=== PATIENT | female | born 1995 | race Caucasian/White ===

== ENCOUNTER 2017-09-11 02:25 | Emergency (ER) | payer MEDICAID ==
[2017-09-11 03:36] LABS: APPEARANCE,URINE SLIGHTLY-CLOUDY; BILIRUBIN,URINE NEGATIVE (NEGATIVE); COLOR,URINE AMBER; GLUCOSE, URINE NEGATIVE (NEGATIVE); KETONES,URINE NEGATIVE (NEGATIVE); LEUKOCYTE ESTERASE,URINE NEGATIVE (NEGATIVE); NITRITE,URINE NEGATIVE (NEGATIVE); PROTEIN,URINE 30 mg/dL (NEGATIVE)
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
[2017-09-11] MEDS ORDERED: ZOLPIDEM TARTRATE 5 MG TABLET PO SCH (03:45)
[2017-09-11 03:50] LABS: URINE AMPHETAMINES SCREEN UNCONFIRMED POSITIVE; URINE BARBITURATES SCREEN NEGATIVE; URINE BENZODIAZEPINES SCREEN NEGATIVE; URINE COCAINE SCREEN NEGATIVE; URINE MARIJUANA (THC) SCREEN NEGATIVE; URINE METHADONE SCREEN NEGATIVE; URINE PHENCYCLIDINE SCREEN NEGATIVE
[2017-09-11 04:23] LABS: ABSOLUTE EOSINOPHILS # (AUTO) 0.3 10^3/uL (0.0-0.6); ABSOLUTE MONOCYTES (AUTO) 0.4 10^3/uL (0.1-1.4); ABSOLUTE NEUT (AUTO) 2.7 10^3/uL (1.7-8.2); BASOPHILS % (AUTO) 0.7 % (0-2); EOSINOPHILS % (AUTO) 4.8 % (0-6); HEMATOCRIT 41.7 % (36.0-47.0); HEMOGLOBIN 14.3 g/dL (12.0-15.5); MEAN CORPUSCULAR HEMOGLOBIN 29.6 pg (27.0-33.4); MEAN CORPUSCULAR HGB CONC 34.2 g/dL (32.0-36.0); MEAN CORPUSCULAR VOLUME 87 fl (80-97); MONOCYTES % (AUTO) 5.7 % (3-13); PLATELET COUNT 230 10^3/uL (150-450); RED BLOOD COUNT 4.82 10^6/uL (3.72-5.28); RED CELL DISTRIBUTION WIDTH 13.1 % (11.5-14.0); SEGMENTED NEUTROPHILS % (AUTO) 42.8 % (42-78); TOTAL CELLS COUNTED % (AUTO) 100 %; WHITE BLOOD COUNT 6.4 10^3/uL (4.0-10.5)
[2017-09-11 04:40] LABS: ALANINE AMINOTRANSFERASE 37 U/L (9-52); ALKALINE PHOSPHATASE 52 U/L (38-126); ANION GAP 10 (5-19); ASPARTATE AMINO TRANSFERASE 18 U/L (14-36); BILIRUBIN,DIRECT 0.2 mg/dL (0.0-0.4); BILIRUBIN,TOTAL 0.3 mg/dL (0.2-1.3); BLOOD UREA NITROGEN 14 mg/dL (7-20); CALCIUM 9.8 mg/dL (8.4-10.2); CARBON DIOXIDE 27 mmol/L (22-30); CHLORIDE 105 mmol/L (98-107); GLUCOSE 101 mg/dL (75-110); POTASSIUM 3.7 mmol/L (3.6-5.0); SODIUM 141.7 mmol/L (137-145); TOTAL PROTEIN 6.5 g/dL (6.3-8.2)
[2017-09-11 04:42] LABS: ACETAMINOPHEN < 10 ug/mL (10-30); ALCOHOL < 10 mg/dL (NONE DETECTED); SALICYLATE < 1.0 mg/dL (2.0-20.0)
--- NOTE | 2017-09-11 07:39 | EKG REPORT ---
SEVERITY:- NORMAL ECG - SINUS RHYTHM : Confirmed by: Elsa Gibson MD 11-Sep-2017 07:38:31
--- NOTE | 2017-09-11 09:52 | ER Document Report ---
Doctor's Note Notes: 09/11/17 09:51 Medical rounds: Chart reviewed and patient interviewed briefly. Vital signs are normal. Laboratory values are satisfactory. On examination, patient is alert, oriented, and cooperative. She denies any somatic complaints. She is medically stable, pending psychiatric evaluation and recommendations.
[2017-09-11] MEDS ORDERED: OXCARBAZEPINE 150 MG TABLET PO SCH (10:00)
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
[2017-09-11 16:07] VITALS: BP 114/67
== END 2017-09-11 16:08 | disposition home or self-care (01) ==
LOC: ER 02:25
DX: F31.9 Bipolar disorder, unspecified (principal); F43.10 Post-traumatic stress disorder, unspecified; R45.851 Suicidal ideations; Z88.0 Allergy status to penicillin; F17.200 Nicotine dependence, unspecified, uncomplicated; F90.9 Attention-deficit hyperactivity disorder, unspecified type
CPT/HCPCS: 36415; 80053; 80307; 81001; 84703; 85025; 93005; 93010; 99285

== ENCOUNTER 2017-09-23 13:16 | Emergency (ER) | payer MEDICAID, OTHER ==
[2017-09-23 14:16] LABS: APPEARANCE,URINE CLOUDY; BILIRUBIN,URINE NEGATIVE (NEGATIVE); COLOR,URINE AMBER; GLUCOSE, URINE NEGATIVE (NEGATIVE); KETONES,URINE NEGATIVE (NEGATIVE); LEUKOCYTE ESTERASE,URINE LARGE (NEGATIVE); NITRITE,URINE NEGATIVE (NEGATIVE); PROTEIN,URINE 100 mg/dL (NEGATIVE); URINE SPECIFIC GRAVITY 1.027
[2017-09-23] MEDS ORDERED: NITROFURANTOIN MONOHYD/M-CRYST 100 MG CAPSULE PO ONE (14:37)
[2017-09-23] MEDS ORDERED: PHENAZOPYRIDINE HCL 200 MG TABLET PO ONE (14:37)
--- NOTE | 2017-09-23 14:41 | ER Document Report ---
ED General - General Chief Complaint: Urinary Problem Stated Complaint: URINARY PROBLEMS Time Seen by Provider: 09/23/17 14:37 Mode of Arrival: Ambulatory Information source: Patient Notes: Patient presents complaining that she has severe lower abdominal pressure and bleeding when she urinates. She states her urine is very strong smelling. Symptoms are moderate to severe. They are constant. They are worse with urinating and better with rest. She has no vaginal bleeding or discharge. She has had no vomiting or diarrhea. The pain does radiate into her pelvis. It is a crampy and sharp sensation. TRAVEL OUTSIDE OF THE [place] IN LAST 30 DAYS: No - Related Data Allergies/Adverse Reactions: escitalopram oxalate [From Lexapro] Allergy (Intermediate, Verified 09/23/17 13: 20) Unknown reaction lavender (Lavandula angustifolia) [lavender] Allergy (Intermediate, Verified 03/03 13:20) Hives Raspberry Flavor, Artificial * [Raspberry Flavor, Artificial] Allergy ( Intermediate, Verified 09/23/17 13:20) Hives ceftriaxone [From Rocephin] Allergy (Verified 09/23/17 13:20) Penicillins Adverse Reaction (Unknown, Verified 09/23/17 13:20) amharic spring Allergy (Intermediate, Uncoded 09/23/17 13:20) Hives Past Medical History - General Information source: Patient - Social History Smoking Status: Never Smoker Chew tobacco use (# tins/day): No Frequency of alcohol use: None Family History: Reviewed & Not Pertinent Patient has suicidal ideation: No Patient has homicidal ideation: No Renal/ Medical History: Denies: Hx Peritoneal Dialysis Psychiatric Medical History: Reports: Hx Bipolar Disorder Past Surgical History: Reports: Hx Section - Immunizations Immunizations up to date: Yes Hx Diphtheria, Pertussis, Tetanus Vaccination: No Review of Systems - Review of Systems Constitutional: denies: Chills, Fever Cardiovascular: denies: Chest pain, Palpitations Respiratory: denies: Cough, Short of breath Gastrointestinal: Abdominal pain, Nausea -: Yes All other systems reviewed and negative Physical Exam - Vital signs Vitals: Temp Pulse Resp BP Pulse Ox 98.3 F 80 15 122/79 99 09/23/17 13:28 09/23/17 13:28 09/23/17 13:28 09/23/17 13:28 09/23/17 13:28 Interpretation: Normal - General General appearance: Appears well, Alert - HEENT Head: Normocephalic, Atraumatic Eyes: Normal Pupils: PERRL - Respiratory Respiratory status: No respiratory distress Chest status: Nontender Breath sounds: Normal Chest palpation: Normal - Cardiovascular Rhythm: Regular Heart sounds: Normal auscultation Murmur: No - Abdominal Inspection: Normal Distension: No distension Bowel sounds: Normal Tenderness: Tender, Other - Patient is tender in the bilateral lower quadrants Organomegaly: No organomegaly - Back Back: Normal, Nontender - Extremities General upper extremity: Normal inspection, Nontender, Normal color, Normal ROM , Normal temperature General lower extremity: Normal inspection, Nontender, Normal color, Normal ROM , Normal temperature, Normal weight bearing. No: Kobe's sign - Neurological Neuro grossly intact: Yes Cognition: Normal Orientation: AAOx4 Anju Coma Scale Eye Opening: Spontaneous Anju Coma Scale Verbal: Oriented Anju Coma Scale Motor: Obeys Commands Anju Coma Scale Total: 15 Speech: Normal Motor strength normal: LUE, RUE, LLE, RLE Sensory: Normal - Psychological Associated symptoms: Normal affect, Normal mood - Skin Skin Temperature: Warm Skin Moisture: Dry Skin Color: Normal Course - Vital Signs Vital signs: Temp Pulse Resp BP Pulse Ox 98.3 F 80 15 122/79 99 09/23/17 13:28 09/23/17 13:28 09/23/17 13:28 09/23/17 13:28 09/23/17 13:28 - Laboratory Laboratory results interpreted by me: 09/23/17 13:34 Urine Protein 100 H Urine Blood MODERATE H Urine Urobilinogen 4.0 H Ur Leukocyte Esterase LARGE H Discharge - Discharge Clinical Impression: UTI (urinary tract infection) Qualifiers: Urinary tract infection type: acute cystitis Hematuria presence: with hematuria Qualified Code(s): N30.01 - Acute cystitis with hematuria Condition: Stable Disposition: HOME, SELF-CARE Instructions: Urinary Tract Infection ([facility]), Nitrofurantoin ([facility]) Prescriptions: Ibuprofen [Motrin 800 mg Tablet] 800 mg PO Q8H PRN #30 tab PRN Reason: Nitrofurantoin Monohyd/M-Cryst [Macrobid 100 mg Capsule] 100 mg PO BID 7 Days # 14 capsule Phenazopyridine HCl [Pyridium 200 mg Tablet] 200 mg PO TID #15 tablet Forms: Return to Work
[2017-09-23 14:45] VITALS: BP 120/78
== END 2017-09-23 14:48 | disposition home or self-care (01) ==
LOC: ER 13:16
DX: N30.01 Acute cystitis with hematuria (principal); R10.30 Lower abdominal pain, unspecified; R11.0 Nausea; Z88.0 Allergy status to penicillin
CPT/HCPCS: 99283; 81001; J3490 ×2; J8499

== ENCOUNTER 2017-10-02 17:42 | Emergency (ER) | payer MEDICAID ==
[2017-10-02] MEDS ORDERED: OXYCODONE-ACETAMINOPHEN 5-325 MG TABLET PO ONE (18:59)
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
[2017-10-02] MEDS ORDERED: HYDROMORPHONE HCL INJ/PF 2 MG/ML AMPULE IV ONE ×2 (19:09→19:36)
[2017-10-02] MEDS ORDERED: CLINDAMYCIN 600 MG/D5W RTU 600 MG/50 ML RTUPB IV ONE (19:35)
[2017-10-02] MEDS ORDERED: DIPH/PERTUSS(ACELL)/TETANUS VAC/PF 0.5 ML SYR (>=10YO) IM ONE (19:35)
[2017-10-02] MEDS ORDERED: ONDANSETRON HCL INJ/PF 4 MG/2 ML SDV IV ONE (19:36)
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
[2017-10-02] MEDS ORDERED: LIDOCAINE 1%/EPINEPHRINE INJ 20 ML VIAL INJ ONE (20:39)
[2017-10-02] MEDS ORDERED: LORAZEPAM INJ 2 MG/1 ML VIAL IV ONE (20:39)
[2017-10-02] MEDS ORDERED: HYDROCODONE/ACETAMINOPHEN 5-325 MG (6 TAB/ER DISP) PO PRN (21:22)
[2017-10-02 21:47] VITALS: BP 125/63
== END 2017-10-02 21:46 | disposition home or self-care (01) ==
LOC: ER 17:42
PROC: 0JCH0ZZ Extirpation of Matter from Left Lower Arm Subcutaneous Tissue and Fascia, Open Approach (ICD-10-PCS; principal; 2017-10-02)
DX: S51.822A Laceration with foreign body of left forearm, initial encounter (principal); S00.83XA Contusion of other part of head, initial encounter; S80.812A Abrasion, left lower leg, initial encounter; M54.2 Cervicalgia; V86.59XA Driver of other special all-terrain or other off-road motor vehicle injured in nontraffic accident, initial encounter; F17.200 Nicotine dependence, unspecified, uncomplicated; Z88.0 Allergy status to penicillin; Z23 Encounter for immunization
CPT/HCPCS: 96376; 99284; 90471; 96375; 96365; 36415; 84703; 73090; 73130; 73030; 70450; 72125; 90715; 20103; S0077; J3490; J1170; J2060; J2405

== ENCOUNTER 2018-04-22 21:36 | Emergency (ER) | payer MEDICAID ==
[2018-04-22 22:33] LABS: ABSOLUTE EOSINOPHILS # (AUTO) 0.2 10^3/uL (0.0-0.6); ABSOLUTE LYMPHOCYTES (AUTO) 2.9 10^3/uL (0.5-4.7); ABSOLUTE MONOCYTES (AUTO) 0.3 10^3/uL (0.1-1.4); ABSOLUTE NEUT (AUTO) 5.3 10^3/uL (1.7-8.2); BASOPHILS % (AUTO) 0.4 % (0-2); EOSINOPHILS % (AUTO) 2.1 % (0-6); HEMATOCRIT 39.1 % (36.0-47.0); HEMOGLOBIN 13.7 g/dL (12.0-15.5); MEAN CORPUSCULAR HEMOGLOBIN 30.7 pg (27.0-33.4); MEAN CORPUSCULAR HGB CONC 34.9 g/dL (32.0-36.0); MEAN CORPUSCULAR VOLUME 88 fl (80-97); MONOCYTES % (AUTO) 3.7 % (3-13); PLATELET COUNT 212 10^3/uL (150-450); RED BLOOD COUNT 4.45 10^6/uL (3.72-5.28); RED CELL DISTRIBUTION WIDTH 12.6 % (11.5-14.0); SEGMENTED NEUTROPHILS % (AUTO) 60.8 % (42-78); TOTAL CELLS COUNTED % (AUTO) 100 %; WHITE BLOOD COUNT 8.7 10^3/uL (4.0-10.5)
[2018-04-22 22:48] LABS: ALANINE AMINOTRANSFERASE 37 U/L (9-52); ALBUMIN 3.7 g/dL (3.5-5.0); ALKALINE PHOSPHATASE 44 U/L (38-126); ANION GAP 7 (5-19); ASPARTATE AMINO TRANSFERASE 23 U/L (14-36); BILIRUBIN,DIRECT 0.2 mg/dL (0.0-0.4); BILIRUBIN,TOTAL 0.3 mg/dL (0.2-1.3); BLOOD UREA NITROGEN 11 mg/dL (7-20); CALCIUM 9.1 mg/dL (8.4-10.2); CARBON DIOXIDE 24 mmol/L (22-30); CHLORIDE 110 mmol/L (98-107); GLUCOSE 84 mg/dL (75-110); POTASSIUM 3.8 mmol/L (3.6-5.0); SODIUM 140.6 mmol/L (137-145); TOTAL PROTEIN 6.2 g/dL (6.3-8.2)
[2018-04-22 22:50] LABS: ACETAMINOPHEN < 10 ug/mL (10-30); ALCOHOL < 10 mg/dL (NONE DETECTED); SALICYLATE < 1.0 mg/dL (2.0-20.0)
--- NOTE | 2018-04-23 00:56 | ER Document Report ---
ED General - General Chief Complaint: Suicidal Ideation Stated Complaint: SUICIDAL IDEATION Time Seen by Provider: 04/22/18 21:55 Notes: Patient is a 22-year-old female with a past medical history of anxiety and depression, prior suicide attempts who presents with suicidal ideation and worsening depression. The patient reports that she was evicted from her home today, unfortunately lost custody of her child in that context. She states that since that time she has had a pervasive sense of wanting to end her life but denies a specific plans, means or intention to complete this section. She states the last time she felt this way was when she was 15 or 16 years old. She has been taking all medications as prescribed. She does not have local family support. She is currently homeless. She denies any acute medical concerns. TRAVEL OUTSIDE OF THE [place] IN LAST 30 DAYS: No - Related Data Allergies/Adverse Reactions: escitalopram oxalate [From Lexapro] Allergy (Intermediate, Verified 04/23/18 00: 59) Unknown reaction lavender (Lavandula angustifolia) [lavender] Allergy (Intermediate, Verified 03/03 00:59) Hives Raspberry Flavor, Artificial * [Raspberry Flavor, Artificial] Allergy ( Intermediate, Verified 04/23/18 00:59) Hives ceftriaxone [From Rocephin] Allergy (Verified 04/23/18 00:59) Penicillins Adverse Reaction (Unknown, Verified 04/23/18 00:59) [facility] Allergy (Intermediate, Uncoded 10/02/17 17:46) Hives Past Medical History - General Information source: Patient - Social History Smoking Status: Current Every Day Smoker Frequency of alcohol use: Social Drug Abuse: None Lives with: Homeless Family History: Reviewed & Not Pertinent Patient has suicidal ideation: Yes Patient has homicidal ideation: No Renal/ Medical History: Denies: Hx Peritoneal Dialysis Psychiatric Medical History: Reports: Hx Bipolar Disorder, Hx Depression Past Surgical History: Reports: Hx Section - Immunizations Immunizations up to date: Yes Hx Diphtheria, Pertussis, Tetanus Vaccination: No Review of Systems - Review of Systems Notes: Constitutional: Negative for fever. HENT: Negative for sore throat. Eyes: Negative for visual changes. Cardiovascular: Negative for chest pain. Respiratory: Negative for shortness of breath. Gastrointestinal: Negative for abdominal pain, vomiting or diarrhea. Genitourinary: Negative for dysuria. Musculoskeletal: Negative for back pain. Skin: Negative for rash. Neurological: Negative for headaches, weakness or numbness. 10 point ROS negative except as marked above and in HPI. Physical Exam - Vital signs Vitals: Temp Pulse Resp BP Pulse Ox 98.1 F 62 16 107/65 98 04/22/18 21:55 04/22/18 21:55 04/22/18 21:55 04/22/18 21:55 04/22/18 21:55 Interpretation: Normal Notes: PHYSICAL EXAMINATION: GENERAL: Well-appearing, well-nourished and in no acute distress. HEAD: Atraumatic, normocephalic. EYES: Pupils equal round and reactive to light, extraocular movements intact, sclera anicteric, conjunctiva are normal. ENT: nares patent, oropharynx clear without exudates. Moist mucous membranes. NECK: Normal range of motion, supple without lymphadenopathy LUNGS: Breath sounds clear to auscultation bilaterally and equal. No wheezes rales or rhonchi. HEART: Regular rate and rhythm without murmurs ABDOMEN: Soft, nontender, normoactive bowel sounds. No guarding, no rebound. No masses appreciated. EXTREMITIES: Normal range of motion, no pitting or edema. No cyanosis. NEUROLOGICAL: No focal neurological deficits. Moves all extremities spontaneously and on command. PSYCH: Depressed mood and affect. Poor eye contact. SKIN: Warm, Dry, normal turgor, no rashes or lesions noted. Course - Re-evaluation Re-evalutation: 04/23/18 03:13 Patient presents with complaints of passive suicidal ideation without specific plan or intention to complete after being evicted from her apartment and having to give up custody of her child to a former significant other. Patient denies any acute medical complaints. She states that she has been taking all medications as prescribed. Patient has no findings on medical screening exam and her medical screening labs are noted to be unremarkable. She has agreed to remain in the emergency department to speak with our behavioral health services in the morning. She is cleared for evaluation and disposition by psychiatry. - Vital Signs Vital signs: Temp Pulse Resp BP Pulse Ox 98.1 F 62 16 107/65 98 04/22/18 21:55 04/22/18 21:55 04/22/18 21:55 04/22/18 21:55 04/22/18 21:55 - Laboratory Result Diagrams: 04/22/18 22:15 04/22/18 22:15 Laboratory results interpreted by me: 04/22/18 22:15 Chloride 110 H Total Protein 6.2 L Salicylates < 1.0 L Acetaminophen < 10 L - EKG Interpretation by Me Additional EKG results interpreted by me: 04/23/18 03:14 Sinus rhythm. Rate 64. No ST elevations or depressions. QTC is 430. Discharge - Discharge Clinical Impression: Suicidal ideation Depression Qualifiers: Depression Type: unspecified Qualified Code(s): F32.9 - Major depressive disorder, single episode, unspecified
--- NOTE | 2018-04-23 07:33 | EKG REPORT ---
SEVERITY:- NORMAL ECG - SINUS RHYTHM : Confirmed by: Gino Lee MD 23-Apr-2018 07:32:25
--- NOTE | 2018-04-23 10:02 | ER Document Report ---
Doctor's Note Notes: 04/23/18 10:01 Rounds: Chart reviewed and patient interviewed. Patient suffers from anxiety and depression and had suicidal thoughts. Seems to still be depressed this morning. Patient is homeless. Also has lost custody of her child. No urinalysis obtained at this point so drug screen not available. All other labs are essentially normal. Vital signs are all normal. Patient appears to be medically stable for transfer or discharge. Sagrario Colón MD
[2018-04-23 10:31] LABS: AMORPHOUS SEDIMENT,URINE TRACE /HPF; APPEARANCE,URINE CLOUDY; BILIRUBIN,URINE NEGATIVE (NEGATIVE); COLOR,URINE YELLOW; GLUCOSE, URINE NEGATIVE (NEGATIVE); KETONES,URINE NEGATIVE (NEGATIVE); LEUKOCYTE ESTERASE,URINE TRACE (NEGATIVE); NITRITE,URINE NEGATIVE (NEGATIVE); PROTEIN,URINE 30 mg/dL (NEGATIVE); URINE SPECIFIC GRAVITY 1.026; UROBILINOGEN,URINE NEGATIVE mg/dL (<2.0)
[2018-04-23 10:42] LABS: URINE AMPHETAMINES SCREEN NEGATIVE; URINE BARBITURATES SCREEN NEGATIVE; URINE BENZODIAZEPINES SCREEN NEGATIVE; URINE COCAINE SCREEN NEGATIVE; URINE MARIJUANA (THC) SCREEN NEGATIVE; URINE METHADONE SCREEN NEGATIVE; URINE PHENCYCLIDINE SCREEN NEGATIVE
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
--- NOTE | 2018-04-24 09:23 | ER Document Report ---
Doctor's Note Notes: 04/24/18 09:22 22-year-old female with unspecified bipolar affective disorder presenting with suicidal ideations and depression. She is hemodynamically stable and she is waiting for inpatient psych transfer.
--- NOTE | 2018-04-24 11:38 | PSYCHOLOGICAL NOTE ---
Psych Note - Psych Note Psych Note: Reason for consult: suicidal ideation Clinician conducted check in with patient. Patient is tearful and exclaims that she is a " failure" for not having a home for her son. Patient would not deny suicidal ideation but did deny homicidal ideation. Patient is alert and oriented to person, place, time and circumstance. Mood is dysphoric. Eye contact is fair. Intellectual abilities appear to be within normal range. Conversational speech was within normal rate, tone and prosody. Attention and concentration were good. Insight, judgment, impulse control are fair. Diagnosis: 296.80 (F31.9) unspecified bipolar and related disorder per history provided by the patient 309.81 (F43.10) post manic stress disorder per history provided by patient 314.01 (F90.9) unspecified attention deficit disorder per history by the patient Impression/Plan: Patient is recommended for IVC. Patient discloses suicidal ideation with plan. Patient is dysphoric mood with tearful affect. Patient reports feelings of hopeless and helpless. Behavioral Healthcare Team is actively seeking placement for this patient. Dr. Ortiz was consulted and the care and management of this patient; attending physician is in agreement with recommendations and disposition.
[2018-04-24 12:57] VITALS: BP 104/63
== END 2018-04-24 13:15 ==
LOC: ER 21:36
DX: F31.9 Bipolar disorder, unspecified (principal); R45.851 Suicidal ideations; F17.200 Nicotine dependence, unspecified, uncomplicated; Z91.5 Personal history of self-harm; Z59.0 Homelessness; Z88.8 Allergy status to other drugs, medicaments and biological substances; Z91.048 Other nonmedicinal substance allergy status; Z88.1 Allergy status to other antibiotic agents
CPT/HCPCS: 36415; 80053; 80307; 81001; 84703; 85025; 93005; 93010; 99285

== ENCOUNTER 2019-04-09 16:03 | Outpatient (CLI) | payer MEDICAID ==
[2019-04-09 16:43] LABS: APPEARANCE,URINE CLEAR; BILIRUBIN,URINE NEGATIVE (NEGATIVE); COLOR,URINE YELLOW; GLUCOSE, URINE NEGATIVE (NEGATIVE); KETONES,URINE NEGATIVE (NEGATIVE); LEUKOCYTE ESTERASE,URINE NEGATIVE (NEGATIVE); NITRITE,URINE NEGATIVE (NEGATIVE); PROTEIN,URINE NEGATIVE (NEGATIVE); URINE SPECIFIC GRAVITY 1.009; UROBILINOGEN,URINE NEGATIVE mg/dL (<2.0)
[2019-04-09 16:58] LABS: URINE AMPHETAMINES SCREEN NEGATIVE; URINE BARBITURATES SCREEN NEGATIVE; URINE BENZODIAZEPINES SCREEN NEGATIVE; URINE COCAINE SCREEN NEGATIVE; URINE MARIJUANA (THC) SCREEN NEGATIVE; URINE METHADONE SCREEN NEGATIVE; URINE PHENCYCLIDINE SCREEN NEGATIVE
== END 2019-04-09 16:54 | disposition home or self-care (01) ==
LOC: LC 16:03
PROVIDERS: ATTEND Obstetrics & Gynecology
PROC: 4A1HXCZ Monitoring of Products of Conception, Cardiac Rate, External Approach (ICD-10-PCS; principal; 2019-04-09)
DX: O36.8120 Decreased fetal movements, second trimester, not applicable or unspecified (principal); Z3A.21 21 weeks gestation of pregnancy
CPT/HCPCS: 80307; 81001

== ENCOUNTER 2019-07-07 02:22 | Inpatient (IN) | payer MEDICAID ==
[2019-07-07] MEDS ORDERED: PENICILLIN G POTASSIUM 5,000,000 UNIT in DEXTROSE 5%-WATER 100 ML IV ONE (02:30)
[2019-07-07] MEDS ORDERED: RINGERS SOLUTION,LACTATED 1,000 ML IV PRN (02:30)
[2019-07-07 03:22] LABS: APPEARANCE,URINE CLEAR; BILIRUBIN,URINE NEGATIVE (NEGATIVE); COLOR,URINE STRAW; GLUCOSE, URINE NEGATIVE (NEGATIVE); KETONES,URINE TRACE mg/dL (NEGATIVE); LEUKOCYTE ESTERASE,URINE NEGATIVE (NEGATIVE); NITRITE,URINE NEGATIVE (NEGATIVE); PROTEIN,URINE NEGATIVE (NEGATIVE); URINE SPECIFIC GRAVITY 1.006; UROBILINOGEN,URINE NEGATIVE mg/dL (<2.0)
[2019-07-07 03:24] LABS: RBCS (WET MOUNT) FEW RBCS SEEN; T.VAGINALIS (WET MOUNT) NO TRICHOMONAS SEEN; WBCS (WET MOUNT) RARE WBCS SEEN; YEAST (WET MOUNT) NO YEAST SEEN
[2019-07-07] MEDS ORDERED: MISOPROSTOL 0.2 MG TABLET ONE (03:49)
[2019-07-07] MEDS ORDERED: OXYTOCIN 10 UNIT/ML VIAL ONE (03:49)
[2019-07-07] MEDS ORDERED: LIDOCAINE 1% INJ-PF (10 MG/ML) 30 ML SDV ONE (03:51)
[2019-07-07] MEDS ORDERED: BETAMET ACET/BETAMET NA INJ 6 MG/1 ML ONE (03:51)
[2019-07-07] MEDS ORDERED: OXYTOCIN/NORMAL SALINE 0 UNIT/0 ML RTUINJ ONE (03:52)
[2019-07-07] MEDS ORDERED: MAGNESIUM SULFATE 20 GM/500 ML RTUINJ IV ONE ×2 (03:52→15:42)
[2019-07-07] MEDS ORDERED: MAGNESIUM SULFATE 4 GM/100 ML RTUPB IV ONE ×2 (03:52→04:07)
[2019-07-07] MEDS ORDERED: PENICILLIN G-K 5 MILLION UNIT VIAL ONE ×5 (03:53→22:48)
[2019-07-07] MEDS ORDERED: MAGNESIUM SULFATE 20 GM/500 ML RTUINJ IV PRN (04:07)
[2019-07-07 04:08] LABS: ABSOLUTE EOSINOPHILS # (AUTO) 0.3 10^3/uL (0.0-0.6); ABSOLUTE LYMPHOCYTES (AUTO) 2.4 10^3/uL (0.5-4.7); ABSOLUTE MONOCYTES (AUTO) 0.6 10^3/uL (0.1-1.4); ABSOLUTE NEUT (AUTO) 8.4 10^3/uL (1.7-8.2); BASOPHILS % (AUTO) 0.3 % (0-2); EOSINOPHILS % (AUTO) 2.5 % (0-6); HEMATOCRIT 33.6 % (36.0-47.0); HEMOGLOBIN 11.7 g/dL (12.0-15.5); LYMPHOCYTES % (AUTO) 20.3 % (13-45); MEAN CORPUSCULAR HEMOGLOBIN 30.7 pg (27.0-33.4); MEAN CORPUSCULAR HGB CONC 34.8 g/dL (32.0-36.0); MEAN CORPUSCULAR VOLUME 88 fl (80-97); MONOCYTES % (AUTO) 5.3 % (3-13); PLATELET COUNT 243 10^3/uL (150-450); RED BLOOD COUNT 3.81 10^6/uL (3.72-5.28); RED CELL DISTRIBUTION WIDTH 12.7 % (11.5-14.0); SEGMENTED NEUTROPHILS % (AUTO) 71.6 % (42-78); TOTAL CELLS COUNTED % (AUTO) 100 %; WHITE BLOOD COUNT 11.8 10^3/uL (4.0-10.5)
--- NOTE | 2019-07-07 04:17 | Admission Physical ---
Datetime Report Generated by CPN: 07/07/2019 04:17 CURRENT ADMISSION Chief Complaint: Vaginal Bleeding Chief Complaint Other: Vaginal bleeding Admit Impression : , Intrauterine ; Ruptured Membranes Admit Impression- Other: Thin dilute blood in vaginal vault. Positve for amniotic fluid PPROM at 34 wks EGA Admit Plan: Admit to Unit; Initiate Labor Protocol ALLERGIES Medication Allergies: Yes Medication Allergies: escitalopram oxalate/MO/Unknown reactio (04/23/2018); ceftriaxone (04/23/2018); lavender (Lavandula angustifolia)/MO/Hives (04/23/2018); Raspberry Flavor, Artificial */MO/Hives (04/23/2018) Latex: No Latex Allergies Food Allergies: raspberries OBSTETRICAL HISTORY EDC: 08/18/2019 00:00 : 2 Para: 1 Term: 1 : 0 SAB: 0 IAB: 0 Livin Gestational Diabetes: No Rh Sensitization: No Incompetent Cervix: No GAIL: No Infertility: No ART Treatment: No Uterine Anomaly: No IUGR: No Hx Previous C/S: Yes Macrosomia: No Hx Loss/Stillborn: No PIH: No Hx : No Placenta Previa/Abruption: No Depression/PP Depression: Yes PTL/PROM: No Post Hemorrhage: No Current Procedures: Ultrasound Obstetrical History Comments: 2015 G2- current SEE RECORDS Alcohol: No Marijuana : No Cocaine: No Other Illicit Drugs: No Cigarettes: Smoker, Current Status Unknown. [id number] Cigarette Comments: Has not smoked since the beginning of April, but states she was smoking a half pack a day MEDICAL HISTORY Diabetes: No Blood Transfusion: No Pulmonary Disease (Asthma, TB): No Breast Disease: No Hypertension: No Laboratory Helper Surgery: No Heart Disease: No Hosp/Surgery: No Autoimmune Disorder: No Anesthetic Complications: No Kidney Disease: No Abnormal Pap Smear: No Neuro/Epilepsy: No Psychiatric Disorders: No Other Medical Diseases: No Hepatitis/Liver Disease: No Significant Family History: No Varicosities/Phlebitis: No Trauma/Violence : No Thyroid Dysfunction: No Medical History Comments: pt is hypoglycemic, fainting spells during this , previous section and wisdom teeth in 2019 INFECTIOUS HISTORY Gonorrhea: No Genital Herpes: No Chlamydia: No Tuberculosis: No Syphilis: No Hepatitis: No HIV/AIDS Exposure: No Rash or Viral Illness: No HPV: No PHYSICAL EXAM General: Normal HEENT: Normal Neurologic: Normal Thyroid: Normal Heart: Normal Lungs: Normal Breast: Normal Back: Normal Abdomen: Abnormal Genitourinary Exam: Normal Extremities: Normal DTRs: Normal Pelvic Type: Adequate Physical Exam Comments: Thin blood tinged fluid vaginal vault Vital Signs: Reviewed; Within Normal Limits VAGINAL EXAM Dilatation: 0 Effacement: 0 Contraction Comments: Q 10 minutes MEMBRANES Pooling: Positive Membranes: Ruptured FETUS A EGA: 34.0 Monitoring: External US FHR- Baseline: 135 Variability: Moderate 6-25bpm Accelerations: 15X15 Decelerations: None FHR Category: Category I Presentation: Vertex Admit Comment: at 34.0 wks EGA who presented for vaginal bleeding and found to be PPROM -Admit to LDR -IVFs and NPO. Once Mag started and if not laboring can give regular diet. -CEFM and toco -AMnisure positve. Will start PCN, Betamethasone 12mg IM Q 24 hrs x2 and Mag sulfate 4 gm bolus and then 2 gms /hr. If contractions stop then we can stop mag sulfate -Labs pending -Hx of prior CS x1. Will plan repeat CS once steriods on board or sooner as indicated. -Discussed iwth patient and her . Questions answered. -Consent signed. -Will notify NICU staff/route driver PLANS FOR LABOR AND DELIVERY Labor and Delivery: None Pain Management: Epidural Feeding Preference: Breast Benefit of Breast Feed Discussed: Yes Circumcision: N/A INFORMED CONSENT Informed Consent Obtained: Section Delivery; Risks, Benefits and Alternatives Discussed Signature: with User ID: Jonah : with User ID: [email or web address]
[2019-07-07 04:48] LABS: URINE AMPHETAMINES SCREEN NEGATIVE; URINE BARBITURATES SCREEN NEGATIVE; URINE BENZODIAZEPINES SCREEN NEGATIVE; URINE COCAINE SCREEN NEGATIVE; URINE MARIJUANA (THC) SCREEN NEGATIVE; URINE METHADONE SCREEN NEGATIVE; URINE PHENCYCLIDINE SCREEN NEGATIVE
[2019-07-07 04:57] LABS: CHLAM PCR NOT DETECTED (NOT DETECT)
[2019-07-07] MEDS ORDERED: ACETAMINOPHEN 325 MG TABLET ONE (16:15)
[2019-07-07] MEDS ORDERED: ACETAMINOPHEN 325 MG TABLET PO ONE (16:54)
[2019-07-07] MEDS ORDERED: ZOLPIDEM TARTRATE 5 MG TABLET ONE (19:31)
[2019-07-07] MEDS ORDERED: ZOLPIDEM TARTRATE 5 MG TABLET PO ONE (19:45)
[2019-07-07] MEDS: BETAMET ACET/BETAMET NA INJ 6 MG/1 ML IM SCH (22:16)
[2019-07-08] MEDS ORDERED: ACETAMINOPHEN 325 MG TABLET PO ONE (00:38)
[2019-07-08] MEDS ORDERED: ACETAMINOPHEN 325 MG TABLET ONE (00:40)
[2019-07-08] MEDS ORDERED: MAGNESIUM SULFATE 20 GM/500 ML RTUINJ IV ONE (00:40)
[2019-07-08] MEDS ORDERED: ZOLPIDEM TARTRATE 5 MG TABLET ONE ×3 (01:05→20:31)
[2019-07-08] MEDS ORDERED: ZOLPIDEM TARTRATE 5 MG TABLET PO ONE (01:06)
[2019-07-08] MEDS ORDERED: PENICILLIN G-K 5 MILLION UNIT VIAL ONE ×6 (03:39→23:20)
[2019-07-08] MEDS ORDERED: BETAMET ACET/BETAMET NA INJ 6 MG/1 ML ONE (04:36)
[2019-07-08] MEDS: PENICILLIN G POTASSIUM 2,500,000 UNIT in DEXTROSE 5%-WATER 50 ML IV SCH ×6 (09:19→23:30)
[2019-07-08 13:02] LABS: ABSOLUTE MONOCYTES (AUTO) 0.4 10^3/uL (0.1-1.4); ABSOLUTE NEUT (AUTO) 7.3 10^3/uL (1.7-8.2); BASOPHILS % (AUTO) 0.3 % (0-2); HEMOGLOBIN 10.8 g/dL (12.0-15.5); LYMPHOCYTES % (AUTO) 11.7 % (13-45); MEAN CORPUSCULAR HEMOGLOBIN 30.9 pg (27.0-33.4); MEAN CORPUSCULAR HGB CONC 34.7 g/dL (32.0-36.0); MEAN CORPUSCULAR VOLUME 89 fl (80-97); MONOCYTES % (AUTO) 4.7 % (3-13); PLATELET COUNT 242 10^3/uL (150-450); RED BLOOD COUNT 3.48 10^6/uL (3.72-5.28); RED CELL DISTRIBUTION WIDTH 13.2 % (11.5-14.0); SEGMENTED NEUTROPHILS % (AUTO) 83.3 % (42-78); TOTAL CELLS COUNTED % (AUTO) 100 %; WHITE BLOOD COUNT 8.7 10^3/uL (4.0-10.5)
[2019-07-08] MEDS: BETAMET ACET/BETAMET NA INJ 6 MG/1 ML IM SCH (17:57)
[2019-07-08] MEDS: ZOLPIDEM TARTRATE 5 MG TABLET PO PRN ×2 (19:28→20:36)
[2019-07-09] MEDS ORDERED: PENICILLIN G-K 5 MILLION UNIT VIAL ONE (03:19)
[2019-07-09] MEDS: PENICILLIN G POTASSIUM 2,500,000 UNIT in DEXTROSE 5%-WATER 50 ML IV SCH ×2 (03:34→09:25)
[2019-07-09 05:37] LABS: ABSOLUTE LYMPHOCYTES (AUTO) 1.9 10^3/uL (0.5-4.7); ABSOLUTE MONOCYTES (AUTO) 0.6 10^3/uL (0.1-1.4); ABSOLUTE NEUT (AUTO) 7.8 10^3/uL (1.7-8.2); BASOPHILS % (AUTO) 0.2 % (0-2); EOSINOPHILS % (AUTO) 0.3 % (0-6); HEMATOCRIT 30.2 % (36.0-47.0); HEMOGLOBIN 10.4 g/dL (12.0-15.5); LYMPHOCYTES % (AUTO) 18.2 % (13-45); MEAN CORPUSCULAR HEMOGLOBIN 30.9 pg (27.0-33.4); MEAN CORPUSCULAR HGB CONC 34.3 g/dL (32.0-36.0); MEAN CORPUSCULAR VOLUME 90 fl (80-97); MONOCYTES % (AUTO) 5.8 % (3-13); PLATELET COUNT 210 10^3/uL (150-450); RED BLOOD COUNT 3.35 10^6/uL (3.72-5.28); RED CELL DISTRIBUTION WIDTH 13.3 % (11.5-14.0); SEGMENTED NEUTROPHILS % (AUTO) 75.5 % (42-78); TOTAL CELLS COUNTED % (AUTO) 100 %; WHITE BLOOD COUNT 10.3 10^3/uL (4.0-10.5)
[2019-07-09] MEDS ORDERED: CITRIC ACID/SODIUM CITRATE ORAL SOLN 15 ML UDCUP ONE (05:45)
[2019-07-09] MEDS ORDERED: AZITHROMYCIN INJ 500 MG VIAL IV ONE (05:45)
[2019-07-09] MEDS ORDERED: KETOROLAC TROMETHAMINE INJ/PF 30 MG/1 ML SDV ONE (06:14)
[2019-07-09] MEDS ORDERED: ACETAMINOPHEN 1,000 MG/100 ML RTUPB IV ONE (06:14)
[2019-07-09] MEDS ORDERED: ONDANSETRON HCL INJ/PF 4 MG/2 ML SDV ONE (06:14)
[2019-07-09] MEDS ORDERED: OXYTOCIN 10 UNIT/ML VIAL ONE (06:14)
[2019-07-09] MEDS ORDERED: FENTANYL CITRATE INJ/PF 100 MCG/2 ML AMPUL ONE (06:14)
[2019-07-09] MEDS ORDERED: DIPH/PERTUSS(ACELL)/TETANUS VAC/PF 0.5 ML SYR (>=10YO) IM PRN (07:14)
[2019-07-09] MEDS ORDERED: OXYTOCIN/NORMAL SALINE 20 UNIT/1,000 ML RTUINJ IV PRN (07:14)
[2019-07-09] MEDS ORDERED: RINGERS SOLUTION,LACTATED 1,000 ML IV PRN (07:14)
[2019-07-09] MEDS ORDERED: OXYCODONE-ACETAMINOPHEN 5-325 MG TABLET PO PRN (07:14)
[2019-07-09] MEDS ORDERED: ACETAMINOPHEN 1,000 MG/100 ML RTUPB IV PRN (07:14)
[2019-07-09] MEDS ORDERED: MEASLES,MUMPS&RUBELLA VACC/PF 0.5 ML VIAL SUBCUT PRN (07:14)
[2019-07-09] MEDS ORDERED: PROMETHAZINE HCL INJ 25 MG/1 ML VIAL IV PRN (07:14)
[2019-07-09] MEDS ORDERED: ACETAMINOPHEN 325 MG TABLET PO PRN (07:14)
[2019-07-09] MEDS ORDERED: OXYTOCIN/NORMAL SALINE 20 UNIT/1,000 ML RTUINJ ONE (07:27)
--- NOTE | 2019-07-09 07:27 | Operative Report ---
Operative Report DATE OF SURGERY: 07/09/19 PREOPERATIVE DIAGNOSIS: IUP @ 34 2/, PPROM, previous csection, status post ACS protocol POSTOPERATIVE DIAGNOSIS: same OPERATION: Repeat low transverse hysterotomy section SURGEON: NEREIDA FORD ANESTHESIA: Spinal TISSUE REMOVED OR ALTERED: Placenta COMPLICATIONS: None ESTIMATED BLOOD LOSS: 700 cc INTRAOPERATIVE FINDINGS: Female infant cephalic presentation, Apgars of 7 8 PROCEDURE: PROCEDURE IN DETAIL: The patient was taken to the operating room, prepared and draped in a normal sterile fashion in a supine position with a leftward tilt. A transverse skin incision was made with a scalpel and carried through to the underlying layer of fascia with the same scalpel. The fascia was excised in the midline and extended laterally with Marybeth. The fascia was then dissected from the rectus muscle sharply with Marybeth and the rectus muscle was divided and the peritoneal cavity was entered sharply with the same Metzenbaum. With good visualization of the bladder and the uterus the bladder blade was inserted. The hysterotomy was nicked with a scalpel and extended laterally with surgeon finger fraction. The infant was then delivered atraumatically. The nose and mouth were suctioned with a suction bulb, the cord was clamped and cut and handed off to awaiting pediatricians. Cord blood was collected. The placenta was removed manually. The uterus was exteriorized and cleared of clots and debris. The hysterotomy was closed with 0 Monocryl in a running, locked fashion. A second layer of the same suture was used to imbricate to ensure hemostasis. The uterus was returned to the abdomen and peritoneal cavity was cleared of clots and debris. The rectus muscle and peritoneum were repaired with mattress stitch of 2-0 Chromic. The fascia was closed with 0-Vicryl. The subcutaneous layer was closed with plain catgut and the skin was closed with 4-0 Vicryl. The patient tolerated the procedure well. Sponge, lap, and needle counts correct x2 and the patient was taken to recovery in stable condition.
--- NOTE | 2019-07-09 07:54 | Warning Signs in Babies ---
VOD Warning Signs Datetime Report Generated by [facility]: 07/09/2019 07:54 VOD#608 -Warning Signs in Babies: Needs to be viewed. (04/09/2019 16:08:Marie Guaman RN)
--- NOTE | 2019-07-09 08:00 | Delivery Summary ---
Del Sum A-C Datetime Report Generated by CPN: 07/09/2019 08:00 DELIVERY PERSONNEL DELIVERY PERSONNEL: [id number] Delivery Doctor:: Elise Jacobson MD Anesthesiologist:: Asha Singleton MD BUSINESS SUPPORT COORDINATOR:: Amie Rodriguez BUSINESS SUPPORT COORDINATOR Paste Worker:: Kathrine Del Toro RN Neonatal Nurse Practitioner:: SHRUTHI Anaya Nursery Nurse:: Marie Vazquez RN Biomedical Equipment Tech/PROGRAM LEAD: ST Renee Biomedical Equipment Tech/PROGRAM LEAD: ST Dhiraj Additional Personnel: : sierra tovar BUILDING MAINTENANCE ENGINEER MATERNAL INFORMATION Delivery Anesthesia: Spinal Medications After Delivery: Pitocin Bolus-Please Comment; Pitocin Drip 20 Units/1000ml NSS; Cytotec 1000mcg Per Rectum/Vagina Delivery QBL: 530 Maternal Complications: Premature Rupture of Membranes LABOR SUMMARY EDC: 08/18/2019 00:00 No. Babies in Womb: 1 Attempted: No Labor Anesthesia: None LABOR INFORMATION Reason for Induction: Not Applicable Oxytocin: N/A Group B Beta Strep: positive Antibiotics # of Doses: 11 Antibiotics Time of Last Dose: 333 Name of Antibiotic Given: PCN Steroids Given: Full Course; > 24 Hours before Delivery Reason Steroids Not Administered: Indication MEMBRANES Membranes Rupture Method: Spontaneous Rupture of Membranes: 07/07/2019 01:00 Length of Rupture (hr): 53.75 Amniotic Fluid Color: Bloody Amniotic Fluid Amount: Scant Amniotic Fluid Odor: Normal STAGES OF LABOR Stage 3 hr: 0 Stage 3 min: 2 CSECTION DELIVERY Primary Indication: Repeat Secondary Indication: PPPROM CSection Urgency: Non-Scheduled CSection Incidence: Repeat Labor: No Labor Elective: Nonelective CSection Incision: Lower Uterine Transverse BABY A INFORMATION Infant Delivery Date/Time: 07/09/2019 06:45 Method of Delivery: Born in Route : No : N/A Forceps: N/A Vacuum Extraction: N/A Shoulder Dystocia : No PRESENTATION/POSITION BABY A Presentation: Cephalic Cephalic Presentation: Vertex Vertex Position: Left Occipital Anterior Breech Presentation: N/A PLACENTA INFORMATION BABY A Placenta Delivery Time : 07/09/2019 06:47 Placenta Method of Delivery: Manual Removal Placenta Status: Delivered SCORES BABY A Color 1 min: Body [place], Extremities Blue Color 5 min: Body [place], Extremities Blue INFORMATION BABY A Gestational Age at Delivery: 34.2 Gestational Status: Late - 34- 36.6 Weeks Infant Outcome : Liveborn Condition : Stable Infant Sex: Female IDENTIFICATION BABY A Infant Verification Date/Time: 07/09/2019 07:17 ID Band Number: [id number] Mother's Name Verified: Yes RN Verifying : C. Christian RN, M. Temo, RN CORD INFORMATION BABY A No. Cord Vessels: 3 Nuchal Cord : Around Neck x1, Loose Cord Blood Taken: Yes-For Storage (Mom's Blood type +) Infant Suction: Mouth; Nose ASSESSMENT BABY A Physical Findings- Other: see initial nursery assessment Skin to Skin: Yes Infant Care By: SHRUTHI Aguiar/Rufino Pennington, RN Transferred To: NICU BABY B INFORMATION : N/A
[2019-07-09] MEDS ORDERED: MORPHINE SULFATE 10 MG/ML INJ ONE (08:09)
[2019-07-09] MEDS ORDERED: DIPHENHYDRAMINE HCL 25 MG CAPSULE ONE (08:38)
[2019-07-09] MEDS: OXYCODONE-ACETAMINOPHEN 5-325 MG TABLET PO PRN ×3 (10:50→20:34)
[2019-07-09] MEDS: PRENATAL VITAMIN W DHA CAPSULE PO SCH (10:51)
[2019-07-09] MEDS: DOCUSATE SODIUM 100 MG CAPSULE PO SCH ×2 (10:51→17:00)
[2019-07-09] MEDS: MORPHINE SULFATE 10 MG/ML INJ IV PRN ×2 (12:05→16:59)
[2019-07-09] MEDS: IBUPROFEN 800 MG TABLET PO SCH ×3 (13:20→23:53)
[2019-07-09] MEDS ORDERED: DIPHENHYDRAMINE HCL 25 MG CAPSULE PO PRN (15:51)
[2019-07-10] MEDS: OXYCODONE-ACETAMINOPHEN 5-325 MG TABLET PO PRN ×4 (00:39→20:26)
[2019-07-10] MEDS: MORPHINE SULFATE 10 MG/ML INJ IV PRN (02:44)
[2019-07-10] MEDS: IBUPROFEN 800 MG TABLET PO SCH ×3 (05:25→20:25)
[2019-07-10] MEDS: SIMETHICONE 80 MG TAB.CHEW PO PRN ×2 (05:28→13:01)
[2019-07-10 07:53] LABS: HEMATOCRIT 29.3 % (36.0-47.0); HEMOGLOBIN 10.2 g/dL (12.0-15.5); MEAN CORPUSCULAR HEMOGLOBIN 31.3 pg (27.0-33.4); MEAN CORPUSCULAR VOLUME 89 fl (80-97); PLATELET COUNT 212 10^3/uL (150-450); RED BLOOD COUNT 3.27 10^6/uL (3.72-5.28); WHITE BLOOD COUNT 10.8 10^3/uL (4.0-10.5)
--- NOTE | 2019-07-10 08:56 | PDOC PROGRESS REPORT ---
Subjective-OB Progress Note for:: 07/10/19 Subjective: Doing well, no c/o, pain under control, voiding, scant bleeding, eating and drinking, walking Physical Exam (OB) Vital Signs: Temp Pulse Resp BP Pulse Ox 97.7 F 69 16 100/53 L 95 07/10/19 07:41 07/10/19 07:41 07/10/19 07:41 07/10/19 07:41 07/10/19 07:41 Intake & Output 07/09/19 07/10/19 07/11/19 06:59 06:59 06:59 Intake Total 1600 Output Total 3350 Balance -1750 - PIH/Pre-Eclampsia Headache: Absent Epigastric Pain: No Visual Changes: No - Dressing Removed: No - Opsite CD&I Incision: Dressing Closure Type: opsite - Lochia Lochia Amount: Scant < 10 ml Lochia Color: Rubra/Red - Abdomen Description: Tender, Soft, Round Hernia Present: No Fundal Description: Firm, Midline Fundal Height: u/u - u/2 Objective-Diagnostic Laboratory: 07/10/19 07:38 07/10/19 07:38 WBC 10.8 H RBC 3.27 L Hgb 10.2 L Hct 29.3 L MCV 89 MCH 31.3 MCHC 35.0 RDW 13.0 Plt Count 212 Assessment and Plan(PN) - Assessment and Plan (1) Premature rupture of membranes Qualifiers: PROM onset of labor timing: unspecified duration between rupture of membranes and onset of labor Is this a current diagnosis for this admission?: Yes (2) delivery, delivered Is this a current diagnosis for this admission?: Yes (3) delivery delivered Is this a current diagnosis for this admission?: Yes (4) Anxiety Is this a current diagnosis for this admission?: Yes - Time Spent with Patient Time with patient: Less than 15 minutes Medications reviewed and adjusted accordingly: Yes
[2019-07-10] MEDS: DOCUSATE SODIUM 100 MG CAPSULE PO SCH ×2 (10:28→20:25)
[2019-07-10] MEDS: PRENATAL VITAMIN W DHA CAPSULE PO SCH (10:28)
[2019-07-11] MEDS: IBUPROFEN 800 MG TABLET PO SCH ×5 (00:03→23:48)
[2019-07-11] MEDS: OXYCODONE-ACETAMINOPHEN 5-325 MG TABLET PO PRN ×4 (05:31→23:57)
[2019-07-11] MEDS: PRENATAL VITAMIN W DHA CAPSULE PO SCH (09:42)
[2019-07-11] MEDS: DOCUSATE SODIUM 100 MG CAPSULE PO SCH ×2 (09:42→17:20)
--- NOTE | 2019-07-11 10:13 | PDOC PROGRESS REPORT ---
Subjective-OB Progress Note for:: 07/11/19 Subjective: Pt doing well, reports feeling like dressing was damp inside after shower. She is , reports light bleeding, reg diet and +flatus. Physical Exam (OB) Vital Signs: Temp Pulse Resp BP Pulse Ox 98.1 F 76 16 110/52 L 98 07/11/19 07:00 07/11/19 07:00 07/11/19 07:00 07/11/19 07:00 07/11/19 07:00 Intake & Output 07/10/19 07/11/19 07/12/19 06:59 06:59 06:59 Intake Total 1600 900 Output Total 3350 Balance -1750 900 - PIH/Pre-Eclampsia Headache: Absent Epigastric Pain: No Visual Changes: No - Dressing Removed: No - opsite with scant shadow drainage clean dry and intact Incision: Dressing Closure Type: Opsite - Lochia Lochia Amount: Scant < 10 ml Lochia Color: Rubra/Red - Abdomen Description: Soft, Round Hernia Present: No Fundal Description: Firm, Midline Fundal Height: u/u - u/2 Objective-Diagnostic Laboratory: 07/10/19 07:38 Assessment and Plan(PN) - Assessment and Plan (1) Premature rupture of membranes Qualifiers: PROM onset of labor timing: unspecified duration between rupture of membranes and onset of labor PROM gestational age: -third trimester Qualified Code(s): O42.913 - premature rupture of membranes, unspecified as to length of time between rupture and onset of labor, third trimester Is this a current diagnosis for this admission?: Yes (2) delivery, delivered Is this a current diagnosis for this admission?: Yes (3) Anxiety Is this a current diagnosis for this admission?: Yes (4) delivery delivered Is this a current diagnosis for this admission?: Yes - Time Spent with Patient Time with patient: Less than 15 minutes Medications reviewed and adjusted accordingly: Yes - Disposition Anticipated Discharge: Home Within: within 24 hours
[2019-07-11] MEDS: SIMETHICONE 80 MG TAB.CHEW PO PRN (17:24)
[2019-07-12] MEDS: IBUPROFEN 800 MG TABLET PO SCH ×2 (05:34→13:53)
[2019-07-12] MEDS: OXYCODONE-ACETAMINOPHEN 5-325 MG TABLET PO PRN ×2 (08:21→13:55)
[2019-07-12] MEDS: PRENATAL VITAMIN W DHA CAPSULE PO SCH (09:18)
[2019-07-12] MEDS: DOCUSATE SODIUM 100 MG CAPSULE PO SCH (09:18)
--- NOTE | 2019-07-12 13:33 | PDOC DISCHARGE SUMMARY ---
Impression - Admit/DC Date/PCP Admission Date/Primary Care Provider: 07/07/19 03:38 DERRELL SCHAFFER DO Discharge Date: 07/12/19 - Discharge Diagnosis (1) Status post repeat low transverse section Is this a current diagnosis for this admission?: Yes (2) premature rupture of membranes (PPROM) delivered, current hospitalization Is this a current diagnosis for this admission?: Yes - Additional Information Discharge Diet: Regular Discharge Activity: Balance Activity w/Rest, Pelvic Rest, No tub bath Referrals: DERRELL VEGA DO [Primary Care Provider] - Prescriptions: Ibuprofen [Motrin 800 mg Tablet] 800 mg PO Q8HP PRN #90 tablet PRN Reason: Oxycodone HCl/Acetaminophen [Percocet 5-325 mg Tablet] 1 tab PO Q4HP PRN #30 tablet PRN Reason: Home Medications: 95/Iron Fum/Folic/Dha [ + Dha Combo Pack] 1 each PO DAILY 07/08/19 Ibuprofen [Motrin 800 mg Tablet] 800 mg PO Q8HP PRN #90 tablet 07/12/19 Oxycodone HCl/Acetaminophen [Percocet 5-325 mg Tablet] 1 tab PO Q4HP PRN #30 tablet 07/12/19 HPI Gestational Age: 34+2 Reason(s) for Admission: PROM Procedures: NST Intrapartum Procedure(s): : Low Cervical, Transverse Results Laboratory Results: WBC 10.8 10^3/uL (4.0-10.5) H 07/10/19 07:38 RBC 3.27 10^6/uL (3.72-5.28) L 07/10/19 07:38 Hgb 10.2 g/dL (12.0-15.5) L 07/10/19 07:38 Hct 29.3 % (36.0-47.0) L 07/10/19 07:38 MCV 89 fl (80-97) 07/10/19 07:38 MCH 31.3 pg (27.0-33.4) 07/10/19 07:38 MCHC 35.0 g/dL (32.0-36.0) 07/10/19 07:38 RDW 13.0 % (11.5-14.0) 07/10/19 07:38 Plt Count 212 10^3/uL (150-450) 07/10/19 07:38 Lymph % (Auto) 18.2 % (13-45) 07/09/19 05:29 [place] % (Auto) 5.8 % (3-13) 07/09/19 05:29 Eos % (Auto) 0.3 % (0-6) 07/09/19 05:29 Baso % (Auto) 0.2 % (0-2) 07/09/19 05:29 Absolute Neuts (auto) 7.8 10^3/uL (1.7-8.2) 07/09/19 05:29 Absolute Lymphs (auto) 1.9 10^3/uL (0.5-4.7) 07/09/19 05:29 Absolute Monos (auto) 0.6 10^3/uL (0.1-1.4) 07/09/19 05:29 Absolute Eos (auto) 0.0 10^3/uL (0.0-0.6) 07/09/19 05:29 Absolute Basos (auto) 0.0 10^3/uL (0.0-0.2) 07/09/19 05:29 Seg Neutrophils % 75.5 % (42-78) 07/09/19 05:29 Fetomaternal Hemorrhag Cancelled 07/07/19 02:58 Kleihauer-Betke Stain Cancelled 07/07/19 02:58 APTT Cancelled 07/07/19 02:55 Fibrinogen Cancelled 07/07/19 02:55 Urine Color STRAW 07/07/19 03:00 Urine Appearance CLEAR 07/07/19 03:00 Urine pH 6.0 (5.0-9.0) 07/07/19 03:00 Ur Specific [place] 1.006 07/07/19 03:00 Urine Protein NEGATIVE mg/dL (NEGATIVE) 07/07/19 03:00 Urine Glucose (UA) NEGATIVE mg/dL (NEGATIVE) 07/07/19 03:00 Urine Ketones TRACE mg/dL (NEGATIVE) H 07/07/19 03:00 Urine Blood MODERATE (NEGATIVE) H 07/07/19 03:00 Urine Nitrite NEGATIVE (NEGATIVE) 07/07/19 03:00 Urine Bilirubin NEGATIVE (NEGATIVE) 07/07/19 03:00 Urine Urobilinogen NEGATIVE mg/dL (<2.0) 07/07/19 03:00 Ur Leukocyte Esterase NEGATIVE (NEGATIVE) 07/07/19 03:00 Urine WBC (Auto) 0 /HPF 07/07/19 03:00 Urine RBC (Auto) 1 /HPF 07/07/19 03:00 Squamous Epi Cells Auto <1 /HPF 07/07/19 03:00 Urine Ascorbic Acid NEGATIVE (NEGATIVE) 07/07/19 03:00 Membranes Rupture POSITIVE (NEGATIVE) H 07/07/19 03:00 Trichomonas (Wet Prep) NO TRICHOMONAS SEEN 07/07/19 03:05 Vaginal WBC RARE WBCS SEEN 07/07/19 03:05 Vaginal RBC FEW RBCS SEEN 07/07/19 03:05 Vaginal Yeast NO YEAST SEEN 07/07/19 03:05 Urine Opiates Screen NEGATIVE 07/07/19 03:00 Urine Methadone Screen NEGATIVE 07/07/19 03:00 Ur Barbiturates Screen NEGATIVE 07/07/19 03:00 Ur Phencyclidine Scrn NEGATIVE 07/07/19 03:00 Ur Amphetamines Screen NEGATIVE 07/07/19 03:00 U Benzodiazepines Scrn NEGATIVE 07/07/19 03:00 Urine Cocaine Screen NEGATIVE 07/07/19 03:00 U Marijuana (THC) Screen NEGATIVE 07/07/19 03:00 RPR NONREACTIVE (NONREACTIVE) 07/07/19 02:55 Chlamydia DNA (PCR) NOT DETECTED (NOT DETECT) 07/07/19 03:00 N.gonorrhoeae DNA (PCR) NOT DETECTED (NOT DETECT) 07/07/19 03:00 Blood Type A POSITIVE 07/07/19 02:55 Antibody Screen NEGATIVE 07/07/19 02:55 Plan Plan of Treatment: f/u in one week at [facility] for incision check
[2019-07-12 14:37] VITALS: BP 118/64
== END 2019-07-12 15:46 | disposition home or self-care (01) | DRG 788 ==
LOC: LC 02:22 → INTOOBSV 03:38 → LR 03:38 → OBSVTOIN 07-09 07:14 → 2S 07-09 08:28
PROVIDERS: ADMIT Obstetrics & Gynecology; ATTEND Obstetrics & Gynecology
PROC: 10D00Z1 Extraction of Products of Conception, Low, Open Approach (ICD-10-PCS; principal; 2019-07-09)
DX: O42.913 Preterm premature rupture of membranes, unspecified as to length of time between rupture and onset of labor, third trimester (principal); O99.824 Streptococcus B carrier state complicating childbirth; O34.211 Maternal care for low transverse scar from previous cesarean delivery; O99.334 Smoking (tobacco) complicating childbirth; F17.210 Nicotine dependence, cigarettes, uncomplicated; O69.81X0 Labor and delivery complicated by cord around neck, without compression, not applicable or unspecified; Z3A.34 34 weeks gestation of pregnancy; Z37.0 Single live birth
CPT/HCPCS: 1961; 36415; 80307; 81001; 84112; 85025; 85027; 86592; 86850; 86900; 86901; 87210; 87491; 87591; 88307; 94799; J0131; J0456; J0702; J1885; J2270; J2405; J2540; J2590; J3010; J3475; J3490

== ENCOUNTER 2019-08-14 12:20 | Emergency (ER) | payer MEDICAID ==
--- NOTE | 2019-08-14 12:48 | ER Document Report ---
ED General - General Chief Complaint: Nausea/Vomiting Stated Complaint: NAUSEA/VOMITING Time Seen by Provider: 08/14/19 12:47 Primary Care Provider: DERRELL VEGA DO [Primary Care Provider] - Follow up as needed JARRED CHANG MD [ACTIVE STAFF] - Follow up as needed TRAVEL OUTSIDE OF THE [place] IN LAST 30 DAYS: No - HPI Notes: 23-year-old female with a history of IBS presents emergency room with complaints of nausea, vomiting, diarrhea with left upper quadrant and left lower quadrant abdominal pain that started last night. Denies fevers but reports chills. Denies any melena. Patient is stooling approximately 5-6 times a day. No sick contacts. Patient states this did happen right after eating but does not have generalized abdominal pain only on the left side. Patient is breast-feeding. Patient tried Phenergan but vomited that right up. Denies fevers, chills, chest pain,palpitations, shortness of breath, dyspnea, hematuria,blurred vision, double vision, loss of vision, speech changes, LH, dizziness, syncope, headaches, wheezing, ST, URI, neck pain, weakness, bowel or bladder dysfunction, saddle anesthesia, numbness or tingling in bilateral upper or lower extremities equally, muscle paralysis, weakness in bilateral upper or lower extremities equally or rash. - Related Data Allergies/Adverse Reactions: escitalopram oxalate [From Lexapro] Allergy (Intermediate, Verified 08/14/19 12:43) Unknown reaction lavender (Lavandula angustifolia) [lavender] Allergy (Intermediate, Verified 08/14/19 12:43) Hives Raspberry Flavor, Artificial * [Raspberry Flavor, Artificial] Allergy (Intermediate, Verified 08/14/19 12:43) Hives ceftriaxone [From Rocephin] Allergy (Verified 08/14/19 12:43) spring Allergy (Intermediate, Uncoded 10/02/17 17:46) Hives Past Medical History - General Information source: Patient - Social History Smoking Status: Unknown if Ever Smoked Family History: Reviewed & Not Pertinent Renal/ Medical History: Denies: Hx Peritoneal Dialysis Psychiatric Medical History: Reports: Hx Bipolar Disorder, Hx Depression Past Surgical History: Reports: Hx Section - Immunizations Immunizations up to date: Yes Hx Diphtheria, Pertussis, Tetanus Vaccination: No Review of Systems - Review of Systems Constitutional: No symptoms reported EENT: No symptoms reported Cardiovascular: No symptoms reported Respiratory: No symptoms reported Gastrointestinal: See HPI Genitourinary: No symptoms reported Female Genitourinary: No symptoms reported Musculoskeletal: No symptoms reported Skin: No symptoms reported Hematologic/Lymphatic: No symptoms reported Neurological/Psychological: No symptoms reported Physical Exam - Vital signs Vitals: Temp Pulse Resp BP Pulse Ox 98.7 F 104 H 18 112/72 98 08/14/19 12:32 08/14/19 12:32 08/14/19 12:32 08/14/19 12:32 08/14/19 12:32 - Notes Notes: PHYSICAL EXAMINATION: reviewed vital signs by RN GENERAL: Well-appearing, well-nourished and in no acute distress. HEAD: Atraumatic, normocephalic. EYES: Pupils equal round and reactive to light, extraocular movements intact, conjunctiva are normal. ENT: Nares patent, oropharynx clear without exudates. Moist mucous membranes. NECK: Normal range of motion, supple without lymphadenopathy LUNGS: Breath sounds clear to auscultation bilaterally and equal. No wheezes rales or rhonchi. HEART: Regular rate and rhythm without murmurs ABDOMEN: Soft, left upper quadrant and left lower quadrant abdominal tenderness on palpation nondistended abdomen. No guarding, no rebound. No masses appreciated. No CVA tenderness appreciated bilaterally Female : deferred Musculoskeletal: Normal range of motion, no pitting or edema. No cyanosis. NEUROLOGICAL: Cranial nerves grossly intact. Normal speech, normal gait. Normal sensory, motor exams PSYCH: Normal mood, normal affect. SKIN: Warm, Dry, normal turgor, no rashes or lesions noted. Course - Re-evaluation Re-evalutation: 08/14/19 15:24 Afebrile vital stable no distress. Nurse's notes reviewed. CBC negative for leukocytosis or anemia, CMP negative for hepatic or renal dysfunction, no electrolyte disturbances. Lipase normal. Serum hCG negative. Urinalysis normal. CT abdomen pelvis does show cholelithiasis, Patient given 2 L of IV fluids, given antiemetics. Patient is 5 weeks. Para 1 1. Advised to increase oral hydration, advised to avoid diuretics, take OTC Bentyl and antiemetics as needed. This appears to be viral gastroenteritis however patient does need to follow-up outpatient for her cholelithiasis. On reevaluation patient states she is feeling much better. After performing a Medical Screening Examination, I estimate there is LOW risk for ACUTE APPENDICITIS, BOWEL OBSTRUCTION, ACUTE CHOLECYSTITIS, PERFORATED DIVERTICULITIS, INCARCERATED HERNIA, PANCREATITIS, PELVIC INFLAMMATORY DISEASE, PERFORATED ULCER, ECTOPIC , or TUBO-OVARIAN ABSCESS, thus I consider the discharge disposition reasonable. Also, there is no evidence or peritonitis, sepsis, or toxicity. I have reevaluated this patient multiple times and no significant life threatening changes are noted. The patient and I have discussed the diagnosis and risks, and we agree with discharging home with close follow-up with the understanding that symptoms and presentations can change. We also discussed returning to the Emergency Department immediately if new or worsening symptoms occur. We have discussed the symptoms which are most concerning (e.g., bloody stool, fever, changing or worsening pain, vomiting) that necessitate immediate return. - Vital Signs Vital signs: Temp Pulse Resp BP Pulse Ox 98.1 F 68 14 117/56 L 97 08/14/19 16:55 08/14/19 16:55 08/14/19 16:55 08/14/19 16:55 08/14/19 16:55 - Laboratory Result Diagrams: 08/14/19 13:23 08/14/19 13:23 Laboratory results interpreted by me: 08/14/19 13:23 Seg Neutrophils % 79.6 H Discharge - Discharge Clinical Impression: Cholelithiasis, Gastroenteritis Condition: Stable Disposition: HOME, SELF-CARE Instructions: Prescribed Antidiarrhea Medications ([facility]), Antinausea Medication ([facility]), Diarrhea, Nonspecific ([facility]), Gallbladder Disease ([facility]), Intravenous (IV) Fluids ([facility]), OTC Antidiarrhea Medication ([facility]), Vomiting ([facility]) Additional Instructions: Your blood work was normal. Your CT showed cholelithiasis, which is a crampy pain with a cystic duct but the stone that is passing through it. Please follow a low-fat diet. At some point you will need to be seen by a surgeon for possible removal of her gallbladder if it continues to be problematic. You do not need emergent surgery today. You also have a viral gastroenteritis that is exacerbating your IBS. Please take antiemetic and antidiarrheal as directed. Follow-up with your primary care provider tomorrow. Prescriptions: Dicyclomine HCl [Bentyl 20 mg Tablet] 20 mg PO QID PRN #40 tablet PRN Reason: Ondansetron [Zofran Odt 4 mg Tablet] 1 - 2 tab PO Q4H PRN #15 tab.rapdis PRN Reason: For Nausea/Vomiting Forms: Return to Work Referrals: DERRELL VEGA DO [Primary Care Provider] - Follow up as needed JARRED CHANG MD [ACTIVE STAFF] - Follow up as needed
[2019-08-14] MEDS ORDERED: NORMAL SALINE 1000 ML 1,000 ML IV ONE ×2 (13:04→15:21)
[2019-08-14] MEDS ORDERED: ONDANSETRON HCL INJ/PF 4 MG/2 ML SDV IV ONE (13:04)
[2019-08-14 13:36] LABS: ABSOLUTE LYMPHOCYTES (AUTO) 1.2 10^3/uL (0.5-4.7); ABSOLUTE MONOCYTES (AUTO) 0.2 10^3/uL (0.1-1.4); ABSOLUTE NEUT (AUTO) 5.9 10^3/uL (1.7-8.2); BASOPHILS % (AUTO) 0.2 % (0-2); EOSINOPHILS % (AUTO) 0.5 % (0-6); HEMATOCRIT 41.9 % (36.0-47.0); HEMOGLOBIN 14.6 g/dL (12.0-15.5); LYMPHOCYTES % (AUTO) 16.4 % (13-45); MEAN CORPUSCULAR HEMOGLOBIN 29.9 pg (27.0-33.4); MEAN CORPUSCULAR HGB CONC 34.8 g/dL (32.0-36.0); MEAN CORPUSCULAR VOLUME 86 fl (80-97); MONOCYTES % (AUTO) 3.3 % (3-13); PLATELET COUNT 205 10^3/uL (150-450); RED BLOOD COUNT 4.89 10^6/uL (3.72-5.28); RED CELL DISTRIBUTION WIDTH 12.5 % (11.5-14.0); SEGMENTED NEUTROPHILS % (AUTO) 79.6 % (42-78); TOTAL CELLS COUNTED % (AUTO) 100 %; WHITE BLOOD COUNT 7.4 10^3/uL (4.0-10.5)
[2019-08-14 13:52] LABS: ALBUMIN 4.2 g/dL (3.5-5.0); ALKALINE PHOSPHATASE 81 U/L (38-126); ANION GAP 13 (5-19); ASPARTATE AMINO TRANSFERASE 27 U/L (14-36); BILIRUBIN,DIRECT 0.2 mg/dL (0.0-0.4); BILIRUBIN,TOTAL 0.6 mg/dL (0.2-1.3); BLOOD UREA NITROGEN 12 mg/dL (7-20); CALCIUM 9.2 mg/dL (8.4-10.2); CARBON DIOXIDE 26 mmol/L (22-30); CHLORIDE 101 mmol/L (98-107); GLUCOSE 95 mg/dL (75-110); POTASSIUM 3.8 mmol/L (3.6-5.0); TOTAL PROTEIN 7.2 g/dL (6.3-8.2)
[2019-08-14] MEDS ORDERED: DICYCLOMINE HCL 10 MG CAPSULE PO ONE (15:21)
[2019-08-14 15:31] LABS: APPEARANCE,URINE SLIGHTLY-CLOUDY; BILIRUBIN,URINE NEGATIVE (NEGATIVE); COLOR,URINE YELLOW; GLUCOSE, URINE NEGATIVE (NEGATIVE); KETONES,URINE NEGATIVE (NEGATIVE); LEUKOCYTE ESTERASE,URINE NEGATIVE (NEGATIVE); NITRITE,URINE NEGATIVE (NEGATIVE); PROTEIN,URINE NEGATIVE (NEGATIVE); URINE SPECIFIC GRAVITY 1.042; UROBILINOGEN,URINE NEGATIVE mg/dL (<2.0)
--- NOTE | 2019-08-14 15:33 | RADIOLOGY REPORT (SQ) ---
EXAM DESCRIPTION: CT ABD/PELVIS WITH IV ONLY COMPLETED DATE/TIME: 08/14/2019 3:11 pm REASON FOR STUDY: LUQ, LLQ abd pain, severe, x 1 day COMPARISON: None. TECHNIQUE: CT scan of the abdomen and pelvis performed using helical scanning technique with dynamic intravenous contrast injection. No oral contrast. Images reviewed with lung, soft tissue, and bone windows. Reconstructed coronal and sagittal MPR images reviewed. Delayed images for evaluation of the urinary system also acquired. All images stored on PACS. All CT scanners at this facility use dose modulation, iterative reconstruction, and/or weight based d osing when appropriate to reduce radiation dose to as low as reasonably achievable (ALARA). [facility]: Dose Right [facility]: CareDose [facility]: Dose Right [facility]: Teradose 4D [facility]: Roller CONTRAST TYPE AND DOSE: contrast/concentration: Isovue 350.00 mg/ml; Total Contrast Delivered: 95.0 ml; Total Saline Delivered: 71.0 ml RENAL FUNCTION: None required. The patient is less than 50 years old. RADIATION DOSE: CT Rad equipment meets quality standard of care and radiation dose reduction techniq ues were employed. CTDIvol: 11.2 - 15.4 mGy. DLP: 1497 mGy-cm.. LIMITATIONS: None. FINDINGS: LOWER CHEST: No significant findings. No nodules or infiltrates. LIVER: Normal size. No masses. No dilated ducts. SPLEEN: Normal size. No focal lesions. PANCREAS: No masses. No significant calcifications. No adjacent inflammation or peripancreatic fluid collections. Pancreatic duct not dilated. GALLBLADDER: Gallstones. No inflammatory changes to suggest cholecystitis. ADRENAL GLANDS: No significant masses or asymmetry. RIGHT KIDNEY AND URETER: No solid masses. No significant calcification. No hydronephrosis or hydroure ter. LEFT KIDNEY AND URETER: No solid masses. No significant calcification. No hydronephrosis or hydrouret er. AORTA AND VESSELS: No aneurysm. No dissection. Renal arteries, SMA, celiac without stenosis. RETROPERITONEUM: No retroperitoneal adenopathy, hemorrhage or masses. BOWEL AND PERITONEAL CAVITY: No masses or inflammatory changes. No free fluid or peritoneal masses. APPENDIX: Normal. PELVIS: No mass. No free fluid. Normal bladder. ABDOMINAL WALL: No masses. No hernias. BONES: No significant or acute findings. OTHER: No other significant finding. IMPRESSION: 1. Cholelithiasis. 2. Otherwise unremarkable abdominopelvic CT. TECHNICAL DOCUMENTATION: JOB ID: [id number] Quality ID # [id number]: Final reports with documentation of one or more dose reduction techniques (e.g., Au tomated exposure control, adjustment of the mA and/or kV according to patient size, use of iterative reconstruction technique) 2010 [employer]- All Rights Reserved Reading location - IP/workstation name: [email or web address]
[2019-08-14 16:55] VITALS: BP 117/56
== END 2019-08-14 16:57 | disposition home or self-care (01) ==
LOC: ER 12:20
DX: K52.9 Noninfective gastroenteritis and colitis, unspecified (principal); K80.20 Calculus of gallbladder without cholecystitis without obstruction; R11.2 Nausea with vomiting, unspecified
CPT/HCPCS: 99284; 96361; 96374; 36415; 83690; 84703; 85025; 80053; 81001; 74177; J3490; J2405; J7030

== ENCOUNTER 2019-09-14 05:32 | Day surgery (SDC) | payer MEDICAID ==
[2019-09-07 09:21] LABS: HEMATOCRIT 38.2 % (36.0-47.0); HEMOGLOBIN 13.2 g/dL (12.0-15.5); MEAN CORPUSCULAR HGB CONC 34.5 g/dL (32.0-36.0); MEAN CORPUSCULAR VOLUME 84 fl (80-97); PLATELET COUNT 257 10^3/uL (150-450); RED BLOOD COUNT 4.54 10^6/uL (3.72-5.28); RED CELL DISTRIBUTION WIDTH 13.2 % (11.5-14.0); WHITE BLOOD COUNT 6.4 10^3/uL (4.0-10.5)
[2019-09-07 09:42] LABS: ALBUMIN 4.2 g/dL (3.5-5.0); ALKALINE PHOSPHATASE 60 U/L (38-126); AMYLASE 47 U/L (30-110); ANION GAP 9 (5-19); ASPARTATE AMINO TRANSFERASE 38 U/L (14-36); BILIRUBIN,TOTAL 0.2 mg/dL (0.2-1.3); BLOOD UREA NITROGEN 16 mg/dL (7-20); CARBON DIOXIDE 26 mmol/L (22-30); CHLORIDE 105 mmol/L (98-107); GLUCOSE 67 mg/dL (75-110); POTASSIUM 4.5 mmol/L (3.6-5.0)
[~2019-09-14 05:32] MED LIST: ACETAMINOPHEN 325 MG TABLET PO PRN; CEFAZOLIN 1 GM/D5W RTU 1 GM/50 ML RTUPB IV PRN; CLINDAMYCIN 300 MG/D5W RTU 300 MG/50 ML RTUPB IV ONE; CLINDAMYCIN 300 MG/D5W RTU 300 MG/50 ML RTUPB IV PRN; LACTATED RINGERS 1000 ML IV PRN; LIDOCAINE 0.5% INJ-PF (5 MG/ML) 50 ML SDV SUBCUT PRN
[2019-09-14] MEDS ORDERED: DEXMEDETOMIDINE INJ 80 MCG/20 ML VIAL IV ONE (06:49)
[2019-09-14] MEDS ORDERED: DEXAMETHASONE SOD PHOSPHATE INJ 4 MG/1 ML VIAL ONE (06:49)
[2019-09-14] MEDS ORDERED: PROPOFOL INJ 200 MG/20 ML VIAL IV ONE (06:49)
[2019-09-14] MEDS ORDERED: ONDANSETRON HCL INJ/PF 4 MG/2 ML SDV ONE (06:49)
[2019-09-14] MEDS ORDERED: FENTANYL CITRATE INJ/PF 100 MCG/2 ML AMPUL ONE ×2 (06:49→08:44)
[2019-09-14] MEDS ORDERED: LIDOCAINE 2% INJ-PF (100 MG/5 ML) SYRINGE ONE (06:49)
[2019-09-14] MEDS ORDERED: MIDAZOLAM 2 MG/2 ML INJ ONE (06:49)
[2019-09-14] MEDS ORDERED: BUPIVACAINE HCL 0.25 % INJ/PF (2.5 MG/1 ML) 30 ML VIAL ONE (07:04)
[2019-09-14] MEDS ORDERED: FENTANYL CITRATE INJ/PF 100 MCG/2 ML AMPUL IV PRN ×2 (08:03)
[2019-09-14] MEDS ORDERED: MEPERIDINE HCL/PF INJ 25 MG/1 ML DISP.SYRIN IV PRN (08:03)
[2019-09-14] MEDS ORDERED: MORPHINE SULFATE 10 MG/ML INJ IV PRN (08:03)
[2019-09-14] MEDS ORDERED: PROMETHAZINE HCL INJ 25 MG/1 ML VIAL IV PRN ×2 (08:03)
[2019-09-14] MEDS ORDERED: OXYCODONE-ACETAMINOPHEN 5-325 MG TABLET PO PRN ×3 (08:03→08:32)
[2019-09-14] MEDS ORDERED: DIPHENHYDRAMINE HCL 50 MG/ML VIAL IV PRN (08:03)
--- NOTE | 2019-09-14 08:19 | Discharge Summary ---
Discharge Summary (SDC) - Discharge Final Diagnosis: Gallstones Date of Surgery: 09/14/19 Discharge Date: 09/14/19 Condition: Good Forms: ASU Anesthesia D/C Instruction, Discharge POC-Surgical Service Treatment or Instructions: [facility] [address], [place] [address] Discharge Instructions: Laparoscopic Surgery 1. General Information: a. DO NOT DRIVE a car or operate dangerous machinery for 3-4 days or while taking narcotic pain pills. b. DO NOT consume alcohol, tranquilizers, sleeping medications or any non- prescribed medications for 24 hours unless approved by your doctor or as long as taking narcotic prescription medications. c. DO NOT make important decisions or sign any important papers for the first 24 hours after surgery. d. When discharged home the same day of surgery have a responsible person with you for the first night. 2. Activity Restrictions: a. NO heavy lifting, straining abdominal muscles, bending over a lot, yard work, house work, or sports for 2 weeks. b. c. It is fine to go for walks, up and down steps, ride in a car. d. Elevate your head when sleeping/resting. 3. Treatment: a. You may shower 24 hours after surgery, no baths or swimming for 2 weeks. Remove band-aids or dressings before shower but leave paper strips (steri- strips) on the skin to fall off on their own. If still on at postoperative visit they will be removed then. b. Drainage of fluid or blood is not unusual from an incision. If occurs, you can clean with peroxide and cotton ball daily and cover with dry gauze until the wound seals. c. If a lot of bleeding occurs, you can hold pressure with a gauze or cloth over the site for 10 minutes and it will usually stop. If bleeding continues you will need to call for possible evaluation in office or emergency room. 4. Medications: a. Toradol may be taken for pain as needed, one or two tablets every 4-6 hours. Stop the narcotic when able since you cannot take it and drive, and they cause constipation. You may switch to plain Tylenol, Advil or Aleve as you transition from the narcotic. Many adults find good pain relief with Advil 600- 800 mg three times a day with meals. This can cause indigestion, ulcers, and kidney problems with long-term use. b. You should resume all normal medications unless a change is specified by your doctors. c. 5. Diet: Begin with clear liquids and may progress to your normal diet if not nauseated. No high fat, high protein foods the day of surgery. Normal diet 6. The following may occur after laparoscopic surgery: a. Shoulder or upper back ache from retained gas that should resolve in 1-2 days b. Soreness and bruising at incision sites will resolve with time. c. Scrotal swelling (labia in women) and bruising is often seen after hernia surgery. d. Sore throat e. Fatigue may last days to weeks. f. Difficulty urinating may occur and may need to come into emergency room for urinary catheter placement. 7. Notify Physician If: a. Worsening or pain not improved with pain medication b. Persistent nausea and vomiting c. Fever above 101 d. Persistent bleeding or swelling at operative site e. Unable to urinate and uncomfortable bladder 6-8 hours after surgery 8..Follow Up Care: a. Schedule a follow up appointment with your doctor for 2 weeks. In the event of any postoperative problems or questions or you may call the office during business hours or the On-Call physician evenings and weekends at [facility]. [facility] I understand the instructions for my postoperative care as described above and a copy has been given to me. Patient/Significant Other Witness Date Referrals: YANETH HARDING MD [ACTIVE STAFF] - Discharge Diet: As Tolerated Discharge Activity: Activity As Tolerated Home Care Assistance: None Needed Report the Following to Your Physician Immediately: Shortness of Breath, Increase in Pain, Fever over 101 Degrees
--- NOTE | 2019-09-14 08:21 | Operative Report ---
Operative Report DATE OF SURGERY: 09/14/19 PREOPERATIVE DIAGNOSIS: Symptomatic cholelithiasis with cholecystitis POSTOPERATIVE DIAGNOSIS: Same OPERATION: Laparoscopic cholecystectomy SURGEON: YANETH HARDING ANESTHESIA: GA TISSUE REMOVED OR ALTERED: Gallbladder gallstones COMPLICATIONS: None ESTIMATED BLOOD LOSS: Scant INTRAOPERATIVE FINDINGS: See below PROCEDURE: After obtaining informed consent, the patient was taken to the operating room. General Anesthesia was induced; the arms were extended, and the abdomen was exposed, and prepped and draped in a sterile fashion. Instrumentation was set up for laparoscopic cholecystectomy. Surgical plan and surgical timeout were conducted. A vertical incision was made above the umbilicus, and a verres needle was inserted uneventfully into the peritoneal cavity. Pneumoperitoneum was established. The verres needle was removed and a 5 mm trocar was inserted and a 5 mm flexible laparoscope was inserted. Visualization of the peritoneal cavity confirmed safe uneventful entry. Under direct visualization 3 additional 5 mm ports were established, one in the subxiphoid position and second in the subcostal position. A grasper was placed on the fundus of the gallbladder and the gallbladder is elevated over the right surface of the liver; a second grasper was used to grasp the infundibulum of the gallbladder. There were loose filmy adhesions between the gallbladder and the gastroduodenal area which were taken down using a combination of sharp and gentle electrocautery dissection. Visualization of the hepato biliary anatomy appeared normal. The neck of the gallbladder and junction with the cystic duct was dissected out. The Cystic artery was in its usual location, medial and cephalad to the cystic duct. The cystic artery was surrounded with a right angle clamp, clipped twice proximally, once distally and divided with laparoscopic scissors. We now opened the triangle of Calot by dividing the peritoneal reflection on both the medial and lateral sides of the cystic duct infundibular junction. The critical view was obtained. Photos were taken. We now milked the cystic duct of any possible stones, clipped the cystic duct proximally 2 times, once distally and divided the duct with scissors. Photos were taken again. The gallbladder was now removed from the undersurface of the liver using hook cautery dissection. Graspers were repositioned and the gallbladder was removed uneventfully from the abdominal cavity through the super umbilical port site incision. The specimen was examined, then passed off to pathology for permanent analysis. We returned to the peritoneal cavity check for bleeding, and evidence of bile leak, and there was none. We Confirmed satisfactory placement of clips on cystic duct and cystic artery were secured . At this point we felt the operation was complete. The subcutaneous tissue was then anesthetized with quarter percent Marcaine Sponge and needle counts are correct. All ports removed under direct visualization pneumoperitoneum evacuated, the supraumbilical port defect at the fascial level was closed with 0 Vicryl, and 5 mm port wounds closed with 3-0 Vicryl suture, benzoin and Steri-Strips. The patient was extubated, and taken to the recovery room in stable condition.
[2019-09-14] MEDS: FENTANYL CITRATE INJ/PF 100 MCG/2 ML AMPUL IV PRN ×2 (08:45→08:52)
[2019-09-14] MEDS ORDERED: KETOROLAC TROMETHAMINE INJ/PF 30 MG/1 ML SDV ONE (08:49)
[2019-09-14] MEDS ORDERED: OXYCODONE-ACETAMINOPHEN 5-325 MG TABLET ONE (09:17)
[2019-09-14 10:34] VITALS: BP 112/58
[2019-09-14] MEDS ORDERED: GLYCOPYRROLATE 1 MG/5 ML VIAL ONE (10:37)
[2019-09-14] MEDS ORDERED: NEOSTIGMINE METHYLSULFATE 10 MG/10 ML VIAL ONE (10:37)
== END 2019-09-14 10:23 | disposition home or self-care (01) ==
LOC: OROUT 05:32
PROVIDERS: ATTEND Surgery
DX: K80.10 Calculus of gallbladder with chronic cholecystitis without obstruction (principal); Z88.1 Allergy status to other antibiotic agents; Z79.899 Other long term (current) drug therapy; E66.3 Overweight; Z68.36 Body mass index [BMI] 36.0-36.9, adult
CPT/HCPCS: 36415; 82962; 82150; 85027; 81025; 80076; 80048; 88304 ×2; 00790; 47562; J2250; J3490 ×4; J1100; J3010; J2001; J1885; J2710; J2405; J2704; 790

== ENCOUNTER 2019-09-17 12:30 | Emergency (ER) | payer MEDICAID ==
[2019-09-17] MEDS ORDERED: ONDANSETRON 4 MG TAB.RAPDIS PO ONE (13:13)
[2019-09-17] MEDS ORDERED: OXYCODONE-ACETAMINOPHEN 5-325 MG TABLET PO ONE (13:13)
--- NOTE | 2019-09-17 13:15 | ER Document Report ---
ED Medical Screen (RME) - General Chief Complaint: Wound Infection Stated Complaint: POST SURIGICAL PAIN Time Seen by Provider: 09/17/19 13:09 Mode of Arrival: Wheelchair Information source: Patient Notes: 24-year-old female post Choley from September 14 presents emergency department with complaints of surgical site pain. Patient has some erythema and warmth around her umbilical surgical site. She reports pain started couple days ago increased pain today with some discharge this morning. Denies fever vomiting diarrhea. Patient reports she is breast-feeding but she has milk frozen per estella knight. I have greeted and performed a rapid initial assessment of this patient. A comprehensive ED assessment and evaluation of the patient, analysis of test results and completion of the medical decision making process will be conducted by additional ED providers. TRAVEL OUTSIDE OF THE [place] IN LAST 30 DAYS: No - Related Data Allergies/Adverse Reactions: escitalopram oxalate [From Lexapro] Allergy (Intermediate, Verified 09/14/19 05:41) Unknown reaction lavender (Lavandula angustifolia) [lavender] Allergy (Intermediate, Verified 09/14/19 05:41) Hives Raspberry Flavor, Artificial * [Raspberry Flavor, Artificial] Allergy (Intermediate, Verified 09/14/19 05:41) Hives ceftriaxone [From Rocephin] Allergy (Verified 09/14/19 05:41) mauritanian spring Allergy (Intermediate, Uncoded 09/14/19 05:41) Hives Past Medical History - Social History Frequency of alcohol use: None Drug Abuse: None - Past Medical History Cardiac Medical History: Denies: Hx Coronary Artery Disease, Hx Heart Attack, Hx Hypertension Pulmonary Medical History: Denies: Hx Asthma, Hx Bronchitis, Hx COPD, Hx Pneumonia Neurological Medical History: Denies: Hx Cerebrovascular Accident, Hx Seizures Renal/ Medical History: Denies: Hx Peritoneal Dialysis Musculoskeltal Medical History: Denies Hx Arthritis Psychiatric Medical History: Reports: Hx Bipolar Disorder, Hx Depression Past Surgical History: Reports: Hx Section - Immunizations Immunizations up to date: Yes Hx Diphtheria, Pertussis, Tetanus Vaccination: Yes Physical Exam - Vital signs Vitals: Temp Pulse Resp BP Pulse Ox 98.4 F 96 16 118/72 98 09/17/19 12:35 09/17/19 12:35 09/17/19 12:35 09/17/19 12:35 09/17/19 12:35 Course - Vital Signs Vital signs: Temp Pulse Resp BP Pulse Ox 98.4 F 96 16 118/72 98 09/17/19 12:35 09/17/19 12:35 09/17/19 12:35 09/17/19 12:35 09/17/19 12:35
[2019-09-17 14:18] LABS: ALBUMIN 3.9 g/dL (3.5-5.0); ALKALINE PHOSPHATASE 75 U/L (38-126); ANION GAP 7 (5-19); ASPARTATE AMINO TRANSFERASE 190 U/L (14-36); BILIRUBIN,TOTAL 0.3 mg/dL (0.2-1.3); BLOOD UREA NITROGEN 18 mg/dL (7-20); CALCIUM 9.6 mg/dL (8.4-10.2); CARBON DIOXIDE 27 mmol/L (22-30); CHLORIDE 104 mmol/L (98-107); GLUCOSE 78 mg/dL (75-110); POTASSIUM 4.5 mmol/L (3.6-5.0); TOTAL PROTEIN 6.7 g/dL (6.3-8.2)
[2019-09-17 14:48] LABS: APPEARANCE,URINE CLEAR; BILIRUBIN,URINE NEGATIVE (NEGATIVE); COLOR,URINE YELLOW; GLUCOSE, URINE NEGATIVE (NEGATIVE); KETONES,URINE NEGATIVE (NEGATIVE); LEUKOCYTE ESTERASE,URINE NEGATIVE (NEGATIVE); NITRITE,URINE NEGATIVE (NEGATIVE); PROTEIN,URINE NEGATIVE (NEGATIVE); URINE SPECIFIC GRAVITY 1.017; UROBILINOGEN,URINE NEGATIVE mg/dL (<2.0)
[2019-09-17 14:54] LABS: ABSOLUTE EOSINOPHILS # (AUTO) 0.3 10^3/uL (0.0-0.6); ABSOLUTE MONOCYTES (AUTO) 0.5 10^3/uL (0.1-1.4); ABSOLUTE NEUT (AUTO) 5.1 10^3/uL (1.7-8.2); BASOPHILS % (AUTO) 0.2 % (0-2); EOSINOPHILS % (AUTO) 3.4 % (0-6); HEMOGLOBIN 13.5 g/dL (12.0-15.5); LYMPHOCYTES % (AUTO) 25.5 % (13-45); MEAN CORPUSCULAR HEMOGLOBIN 29.2 pg (27.0-33.4); MEAN CORPUSCULAR HGB CONC 34.5 g/dL (32.0-36.0); MEAN CORPUSCULAR VOLUME 85 fl (80-97); MONOCYTES % (AUTO) 6.7 % (3-13); PLATELET COUNT 250 10^3/uL (150-450); RED BLOOD COUNT 4.62 10^6/uL (3.72-5.28); RED CELL DISTRIBUTION WIDTH 13.7 % (11.5-14.0); SEGMENTED NEUTROPHILS % (AUTO) 64.2 % (42-78); TOTAL CELLS COUNTED % (AUTO) 100 %; WHITE BLOOD COUNT 7.9 10^3/uL (4.0-10.5)
--- NOTE | 2019-09-17 16:06 | ER Document Report ---
ED General - General Chief Complaint: Wound Infection Stated Complaint: POST SURIGICAL PAIN Time Seen by Provider: 09/17/19 13:09 Mode of Arrival: Wheelchair Information source: Patient Notes: 24-year-old female post [place]oley from September 14 presents emergency department with complaints of surgical site pain. Patient has some erythema and warmth around her umbilical surgical site. She reports pain started couple days ago increased pain today with some discharge this morning. Denies fever vomiting diarrhea. Patient reports she is breast-feeding but she has milk frozen per child. TRAVEL OUTSIDE OF THE [place] IN LAST 30 DAYS: No - Related Data Allergies/Adverse Reactions: escitalopram oxalate [From Lexapro] Allergy (Intermediate, Verified 09/14/19 05:41) Unknown reaction lavender (Lavandula angustifolia) [lavender] Allergy (Intermediate, Verified 09/14/19 05:41) Hives Raspberry Flavor, Artificial * [Raspberry Flavor, Artificial] Allergy (Intermediate, Verified 09/14/19 05:41) Hives ceftriaxone [From Rocephin] Allergy (Verified 09/14/19 05:41) jaden spring Allergy (Intermediate, Uncoded 09/14/19 05:41) Hives Past Medical History - General Information source: Patient - Social History Smoking Status: Never Smoker Frequency of alcohol use: None Drug Abuse: None Family History: Reviewed & Not Pertinent Patient has suicidal ideation: No Patient has homicidal ideation: No - Past Medical History Cardiac Medical History: Denies: Hx Coronary Artery Disease, Hx Heart Attack, Hx Hypertension Pulmonary Medical History: Denies: Hx Asthma, Hx Bronchitis, Hx COPD, Hx Pneumonia Neurological Medical History: Denies: Hx Cerebrovascular Accident, Hx Seizures Renal/ Medical History: Denies: Hx Peritoneal Dialysis Musculoskeletal Medical History: Denies Hx Arthritis Psychiatric Medical History: Reports: Hx Bipolar Disorder, Hx Depression - anxiety Past Surgical History: Reports: Hx Section - x2, Hx Oral Surgery - Immunizations Immunizations up to date: Yes Hx Diphtheria, Pertussis, Tetanus Vaccination: Yes Physical Exam - Vital signs Vitals: Temp Pulse Resp BP Pulse Ox 98.4 F 96 16 118/72 98 09/17/19 12:35 09/17/19 12:35 09/17/19 12:35 09/17/19 12:35 09/17/19 12:35 - Notes Notes: PHYSICAL EXAMINATION: GENERAL: Well-appearing, well-nourished and in no acute distress. HEAD: Atraumatic, normocephalic. EYES: Pupils equal round and reactive to light, extraocular movements intact, conjunctiva are normal. ENT: Nares patent, oropharynx clear without exudates. Moist mucous membranes. NECK: Normal range of motion, supple without lymphadenopathy LUNGS: Breath sounds clear to auscultation bilaterally and equal. No wheezes rales or rhonchi. HEART: Regular rate and rhythm without murmurs ABDOMEN: Soft,nondistended abdomen. Erythema surrounding the umbilicus, mild swelling noted. No guarding, no rebound. No masses appreciated. Female : deferred Musculoskeletal: Normal range of motion, no pitting or edema. No cyanosis. NEUROLOGICAL: Cranial nerves grossly intact. Normal speech, normal gait. Normal sensory, motor exams PSYCH: Normal mood, normal affect. SKIN: Warm, Dry, normal turgor, no rashes or lesions noted. Course - Re-evaluation Re-evalutation: Patient appears well, nontoxic, vital signs within normal limits. She does have erythema around the umbilical laparoscopic site. She has not had fever. CBC unremarkable. Contacted on-call surgeon, Dr. Webb, he will come and evaluate the patient. 09/17/19 16:48 Dr. Webb came to the bedside, see his separate note. He recommended that I write patient for some Toradol and Keflex. Unfortunately patient has an allergy to cephalosporins. We will start her on Toradol and clindamycin. - Vital Signs Vital signs: Temp Pulse Resp BP Pulse Ox 98.4 F 96 16 118/72 98 09/17/19 12:35 09/17/19 12:35 09/17/19 12:35 09/17/19 12:35 09/17/19 12:35 - Laboratory Result Diagrams: 09/17/19 13:30 09/17/19 13:30 Laboratory results interpreted by me: 09/17/19 13:30 AST 190 H Discharge - Discharge Clinical Impression: Cellulitis Qualifiers: Site of cellulitis: unspecified site Qualified Code(s): L03.90 - Cellulitis, unspecified Condition: Stable Disposition: HOME, SELF-CARE Additional Instructions: Please take medications as prescribed. Dr. Webb has instructed you to re move the packing tomorrow in the shower. Follow-up with his clinic in 1 week. Do not take ibuprofen while taking the Toradol. Prescriptions: Ketorolac Tromethamine [Toradol 10 mg Tablet] 10 mg PO Q6HP PRN #20 tablet PRN Reason: Clindamycin HCl 300 mg PO TID #21 capsule
[2019-09-17] MEDS ORDERED: LIDOCAINE 1% INJ (10 MG/ML) 10 ML MDV ONE (16:11)
[2019-09-17] MEDS ORDERED: LIDOCAINE 1% INJ-PF (10 MG/ML) 30 ML SDV INJ ONE (16:32)
--- NOTE | 2019-09-17 16:37 | Operative Report ---
Operative Report DATE OF SURGERY: 09/17/19 PREOPERATIVE DIAGNOSIS: 1. Cellulitis supraumbilical port site. 2. Status po st laparoscopic cholecystectomy POSTOPERATIVE DIAGNOSIS: Same with serosanguineous fluid at port site OPERATION: Debridement of supraumbilical port site subcutaneous pocket and packing SURGEON: YANETH WEBB ANESTHESIA: Local TISSUE REMOVED OR ALTERED: Liquefied hematoma COMPLICATIONS: None ESTIMATED BLOOD LOSS: Scant INTRAOPERATIVE FINDINGS: See below PROCEDURE: The patient was seen in room 38 in the emergency department. She is 3 days status post laparoscopic cholecystectomy by Dr. Webb. She had progressive pain, swelling and erythema just above the supraumbilical port site incision. The impression was a hematoma versus seroma with cellulitis; I offered the patient bedside evacuation of the postoperative incision The skin was prepped with Betadine Vianney x1% plain lidocaine. Using a hemostat, the superior end of the closed vertically oriented supraumbilical skin incision was opened. Full cc of old blood was evacuated. Peroxide doused Q-tip was inserted into the pocket and any residual fluid was evacuated. There was no pus. A 6 inch piece of quarter inch iodoform packing was inserted into the subcutaneous space. Patient tolerated procedure well. 4 x 4's applied. I discussed the management with [facility]. I suggested the patient be given p.o. first generation cephalosporin, and Toradol prescription. She has been instructed to remove the packing tomorrow in the shower and allow cavity to close further packing. Patient to follow-up with [facility] in 1 week.
[2019-09-17 17:12] VITALS: BP 118/65
== END 2019-09-17 16:58 | disposition home or self-care (01) ==
LOC: ER 12:30
DX: L03.311 Cellulitis of abdominal wall (principal); G89.18 Other acute postprocedural pain; Z98.890 Other specified postprocedural states; Z88.8 Allergy status to other drugs, medicaments and biological substances; Z88.9 Allergy status to unspecified drugs, medicaments and biological substances
CPT/HCPCS: 99283; 36415; 87040; 85025; 80053; 81001; S0119; J3490